=== PATIENT | female | born 1995 | race Caucasian/White ===

== ENCOUNTER 2021-08-04 20:15 | Emergency (ER) | payer MEDICAID, SELFPAY ==
--- NOTE | ~2021-08-04 | US_ITS ---
EXAMINATION: US OBSTETRICAL ULTRASOUND CLINICAL INFORMATION: Left-sided pain COMPARISON: None. LMP: 1821. Gestational age by maternal dates is 2 weeks 5 days. Estimated date of delivery by maternal dates is 04/22/2022. TECHNIQUE: Transabdominal endovaginal pelvic ultrasound FINDINGS: There is a small amount of simple free fluid within the endometrial canal without evidence for any decidual reaction or gestational sac. Right ovary is unremarkable measuring 3.9 x 1.3 x 2.2 cm. Left ovary normal as well measuring 3.2 x 1.3 x 2.5 cm. There is some free fluid in the cul-de-sac which is minimally complex. Within the left adnexa, there appears to be possibly an early ectopic with a rounded lesion measuring 16 mm with a central anechoic area with some internal echogenicities which are too small to characterize. There is increased vascularity within the periphery of this adnexal finding. US/US OB pelvic and transvaginal IMPRESSION: 1. No evidence for any definite gestational or pseudogestational sac. 2. Left adnexal finding which could represent an early ectopic as above. Correlate with hCG levels. 3. Small to moderate amount of complex free fluid in the cul-de-sac which is worrisome as well.
[2021-08-04 20:30] VITALS: BP 128/90; PULSE 71; RESP 16; TEMP 37; O2SAT 99; BMI 22.6
[2021-08-04 20:56] LABS: MANUAL DIFF FLAG NO
[2021-08-04 20:57] LABS: Basophils Percent Auto 0.4 % (0-2); Eosinophils Absolute Auto 0.1 X10*3/uL (0.0-0.4); Eosinophils Percent Auto 1.1 % (0-4); Glucose Urine UA NEG (NEG); Hematocrit 32.3 % (37-47); Hemoglobin 11.1 g/dl (12.0-16.0); Imm Gran Abs Auto 0.02 X10*3/uL (0.00-0.03); Imm Gran Pct Auto 0.3 % (0.0-0.4); Leukocyte Esterase Urine NEG (NEG); Lymphocytes Absolute Auto 3.1 X10*3/uL (1.2-4.9); Lymphocytes Percent Auto 42.4 % (20-40); Mean Corpuscular HGB Conc 34.4 g/dl (31.0-35.0); Mean Corpuscular Hemoglobin 29.1 pg (27.0-33.0); Mean Corpuscular Volume 84.8 fL (80-98); Mean Platelet Volume 10.3 fL (9.4-12.3); Monocytes Absolute Auto 0.5 X10*3/uL (0.1-1.2); Neutrophils Absolute Auto 3.6 X10*3/uL (2.0-8.3); Neutrophils Percent Auto 48.8 % (45-73); Nitrite Urine NEG (NEG); Platelet Count 246 X10*3/uL (160-400); Red Blood Count 3.81 X10*6/uL (4.20-5.50); Specific Gravity - Urine <= 1.005 (1.005-1.025); UACC Culture Trigger NO; Urine Blood 2+ (NEG); Urine Ketones 15 MG/DL (NEG); Urine Protein NEG (NEG-TRACE); White Blood Count 7.3 X10*3/uL (4.8-10.8)
[2021-08-04 21:00] LABS: Appearance Urine CLEAR; Color Urine YELLOW; UPreg QC Valid YES; Urine Pregnancy POSITIVE (NEGATIVE)
[2021-08-04 21:14] LABS: Alanine Aminotransferase 11 U/L (0-31); Albumin Level 4.4 g/dL (3.5-5.0); Alkaline Phosphatase 62 U/L (39-117); Anion Gap 14 (12-20); Aspartate Amino Transferase 16 U/L (5-31); Bilirubin Total 0.6 mg/dL (0.0-1.0); Blood Urea Nitrogen 9 mg/dL (9-16); Calcium 9.4 mg/dL (8.4-10.2); Carbon Dioxide 24 mmol/L (22-29); Chloride 104 mmol/L (96-108); Estimated Glomerular Filt Rate > 60; Glucose Random 95 mg/dL (60-115); Lipase 24 U/L (8-78); Potassium 3.5 mmol/L (3.3-5.1); Sodium 138 mmol/L (135-145); Total Protein 7.3 g/dL (6.5-8.0)
[2021-08-04 21:25] LABS: RBC Urine 0-2 /HPF (0); Squamous Epithelial Cell Urine 1+ /LPF; WBC Urine 0-2 /HPF (0-4)
[2021-08-04 21:26] LABS: Mucus Urine TRACE /LPF
--- NOTE | 2021-08-04 22:30 | ED.PREGNANCY ---
HPI - General Chief complaint: Abdominal Pain Stated complaint: possible misscarriage Time Seen by Provider: 08/04/21 22:19 Source: patient Mode of arrival: ambulatory Limitations: no limitations History of Present Illness HPI Narrative: Patient comes emergency room complaining of vaginal bleeding. Patient states that she has been having severe left lower quadrant pain. Trying to take Tylenol and ibuprofen. On arrival to the ED when the urine test was done, she was informed that her urinalysis was positive. Patient states that she has a 9-month-old baby at home. Patient is now a unknown gestational age. Patient denies vomiting or diarrhea, states that she has been having vaginal bleeding for 5 days Related Data Allergies Allergy/AdvReac Type Severity Reaction Status Date / Time No Known Allergies Allergy Unverified 08/04/21 20:39 [No Known Allergies*] Review of Systems Review of Systems: Constitutional : No Weight loss, No Fever, No Chills, No Night Sweats, No Fatigue, No Malaise ENT/Mouth : No Hearing loss, No Ear Pain, No Nasal Congestion, No Sinus Pain, No Hoarseness, No sore throat, No Rhinorrhea, No Swallowing Difficulty Eyes: No Eye Pain, No Swelling, No Redness, No Foreign Body, No Discharge, No Vision Changes Cardiovascular : No Chest Pain, No SOB, No Dyspnea on Exertion, No Orthopnea, No Edema, No Palpitations Respiratory : No Cough, No Sputum, No Wheezing, No Smoke Exposure, No Dyspnea Gastrointestinal : No Nausea, No Vomiting, No Diarrhea, No Constipation, complaining of left lower quadrant pain/cramping Genitourinary : Complaining of vaginal bleeding for 5 days, No Dysuria, No Urinary Frequency, No Hematuria, No Urinary Incontinence, No Urgency, No Flank Pain, No Urinary Flow Changes, No Hesitancy Musculoskeletal : No joint pain, No Myalgias, No Joint Swelling Skin : No Skin Lesions, No rash Neuro : No Weakness, No Numbness, No Paresthesias, No Loss of Consciousness, No Dizziness, No Headache Psych : No Anxiety/Panic, No Depression, No SI/HI/AH/VH, No Social Issues, Heme/Lymph: No Bruising, No Bleeding,No Lymphadenopathy Endocrine : No Polyuria, No Polydipsia, No Temperature Intolerance PMFSH Past Medical History Medical History No known health problems Social History Social History Advance Directives: No Advance Directives Information Provided: No Physical Exam Vital Signs: Vital Signs: Last Vital Signs Temp 98.6 F 08/04/21 20:30 Pulse 71 08/04/21 20:30 Resp 16 08/04/21 20:30 BP 113/73 08/05/21 00:44 Pulse Ox 99 08/04/21 20:30 Body Mass Index 22.6 Const: Other: Appearance: Alert. Oriented X3. No acute distress. Eyes: Pupils equal, round and reactive to light. ENT: Pharynx normal. Neck: Normal inspection. Neck supple. No lymph nodes noted. No crepitus CVS: Normal heart rate and rhythm. Pulses normal. Normal S1 and S2 Respiratory: No respiratory distress. Breath sounds normal. No Wheezing. No rales Abdomen: Soft , mild to moderate discomfort to deep palpation in the left lower quadrant No rigidity. No distention. : There is moderate amount of blood in the vaginal canal, blood clots, cervix is open Skin: Skin warm and dry. Normal skin color. Normal skin turgor. Extremities: No lower extremity edema. No lower extremity edema. No Lacerations. No Rash Neuro: Oriented X 3. No motor deficit. No sensory deficit. Moving all extermities. No slurred speech. Course Course Course Narrative: I discussed the ultrasound with Dr. Howard; patient has several options. Patient could go home, be treated expectantly, repeat hCG and possible ultrasound in 48 hours. Given clear instructions when to return to emergency room if the pain worsens or she if she has any new symptoms., patient was also given the option to start methotrexate and terminate the . Patient was also given the option to stay in the emergency room for the next 4 hours, repeat HCG, and then we will have a better idea if this may be an ectopic versus IUP. I discussed with the patient that given that she has left lower quadrant pain intermittently, an ultrasound that is highly suspicious for ectopic , I told the patient that I would suggest that she stays at least until 6 to repeat the blood work, then we can monitor her symptoms while she is in the emergency room. Patient states that she cannot stay in the emergency room/be admitted because her is taking care of the baby and she is needed home. Patient is aware that an ectopic rupture is very dangerous, could lead to . Patient will be going home, and needs to have her HCG redrawn in the next 48 hours, I thoroughly discussed with the patient all the signs and symptoms of when to return to the emergency room, and reinforced that she should be staying in the emergency room until we do the re-evaluation Patient states that at this time she almost has no pain. I discussed with the patient that she should not be taking ibuprofen, only time MDM - OB/Uterine Contractions Lab Data Result diagrams: 08/04/21 20:49 08/04/21 20:49 Labs: Lab Results 08/04/21 08/04/21 08/04/21 Range/Units 20:49 20:49 20:49 WBC 7.3 (4.8-10.8) X10*3/uL RBC 3.81 L (4.20-5.50) X10*6/uL Hgb 11.1 L (12.0-16.0) g/dl Hct 32.3 L (37-47) % MCV 84.8 (80-98) fL MCH 29.1 (27.0-33.0) pg MCHC 34.4 (31.0-35.0) g/dl RDW 12.0 (11.0-16.0) % Plt Count 246 (160-400) X10*3/uL MPV 10.3 (9.4-12.3) fL Immature Gran % (Auto) 0.3 (0.0-0.4) % Neut % (Auto) 48.8 (45-73) % Lymph % (Auto) 42.4 H (20-40) % [place] % (Auto) 7.0 (2-11) % Eos % (Auto) 1.1 (0-4) % Baso % (Auto) 0.4 (0-2) % Lymph # (Auto) 3.1 (1.2-4.9) X10*3/uL [place] # (Auto) 0.5 (0.1-1.2) X10*3/uL Eos # (Auto) 0.1 (0.0-0.4) X10*3/uL Baso # (Auto) 0.0 (0.0-0.2) X10*3/uL Abs Immat Gran (auto) 0.02 (0.00-0.03) X10*3/uL Absolute Neuts (auto) 3.6 (2.0-8.3) X10*3/uL Absolute Nucleated RBC 0.000 (0.0-0.012) X10*3/uL Nucleated RBC % (auto) 0.0 (0.0-0.2) /100WBC Sodium 138 (135-145) mmol/L Potassium 3.5 (3.3-5.1) mmol/L Chloride 104 (96-108) mmol/L Carbon Dioxide 24 (22-29) mmol/L Anion Gap 14 (12-20) BUN 9 (9-16) mg/dL Creatinine 0.76 (0.5-1.4) mg/dL Estim Creat Clear Calc 100.0 Estimated GFR > 60 Random Glucose 95 (60-115) mg/dL Calcium 9.4 (8.4-10.2) mg/dL Total Bilirubin 0.6 (0.0-1.0) mg/dL AST 16 (5-31) U/L ALT 11 (0-31) U/L Alkaline Phosphatase 62 (39-117) U/L Total Protein 7.3 (6.5-8.0) g/dL Albumin 4.4 (3.5-5.0) g/dL Lipase 24 (8-78) U/L Beta HCG, Quant 1386 mIU/mL Urine Color YELLOW Urine Appearance CLEAR Urine pH 6.0 (5.0-8.0) Ur Specific [place] <= 1.005 (1.005-1.025) Urine Protein NEG (NEG-TRACE) MG/DL Urine Glucose (UA) NEG (NEG) MG/DL Urine Ketones 15 (NEG) MG/DL Urine Blood 2+ H (NEG) Urine Nitrite NEG (NEG) Ur Leukocyte Esterase NEG (NEG) Urine RBC 0-2 (0) /HPF Urine WBC 0-2 (0-4) /HPF Ur Squamous Epith Cells 1+ /LPF Urine Bacteria NONE /LPF Urine Mucus TRACE /LPF Urine Test (NEGATIVE) 08/04/21 Range/Units 20:49 WBC (4.8-10.8) X10*3/uL RBC (4.20-5.50) X10*6/uL Hgb (12.0-16.0) g/dl Hct (37-47) % MCV (80-98) fL MCH (27.0-33.0) pg MCHC (31.0-35.0) g/dl RDW (11.0-16.0) % Plt Count (160-400) X10*3/uL MPV (9.4-12.3) fL Immature Gran % (Auto) (0.0-0.4) % Neut % (Auto) (45-73) % Lymph % (Auto) (20-40) % [place] % (Auto) (2-11) % Eos % (Auto) (0-4) % Baso % (Auto) (0-2) % Lymph # (Auto) (1.2-4.9) X10*3/uL [place] # (Auto) (0.1-1.2) X10*3/uL Eos # (Auto) (0.0-0.4) X10*3/uL Baso # (Auto) (0.0-0.2) X10*3/uL Abs Immat Gran (auto) (0.00-0.03) X10*3/uL Absolute Neuts (auto) (2.0-8.3) X10*3/uL Absolute Nucleated RBC (0.0-0.012) X10*3/uL Nucleated RBC % (auto) (0.0-0.2) /100WBC Sodium (135-145) mmol/L Potassium (3.3-5.1) mmol/L Chloride (96-108) mmol/L Carbon Dioxide (22-29) mmol/L Anion Gap (12-20) BUN (9-16) mg/dL Creatinine (0.5-1.4) mg/dL Estim Creat Clear Calc Estimated GFR Random Glucose (60-115) mg/dL Calcium (8.4-10.2) mg/dL Total Bilirubin (0.0-1.0) mg/dL AST (5-31) U/L ALT (0-31) U/L Alkaline Phosphatase (39-117) U/L Total Protein (6.5-8.0) g/dL Albumin (3.5-5.0) g/dL Lipase (8-78) U/L Beta HCG, Quant mIU/mL Urine Color Urine Appearance Urine pH (5.0-8.0) Ur Specific [place] (1.005-1.025) Urine Protein (NEG-TRACE) MG/DL Urine Glucose (UA) (NEG) MG/DL Urine Ketones (NEG) MG/DL Urine Blood (NEG) Urine Nitrite (NEG) Ur Leukocyte Esterase (NEG) Urine RBC (0) /HPF Urine WBC (0-4) /HPF Ur Squamous Epith Cells /LPF Urine Bacteria /LPF Urine Mucus /LPF Urine Test POSITIVE H (NEGATIVE) Imaging Data Pelvic ultrasound: Radiologist's impression: FINDINGS: There is a small amount of simple free fluid within the endometrial canal without evidence for any decidual reaction or gestational sac. Right ovary is unremarkable measuring 3.9 x 1.3 x 2.2 cm. Left ovary normal as well measuring 3.2 x 1.3 x 2.5 cm. There is some free fluid in the cul-de-sac which is minimally complex. ?Within the left adnexa, there appears to be possibly an early ectopic with a rounded lesion measuring 16 mm with a central anechoic area with some internal echogenicities which are too small to characterize. There is increased vascularity within the periphery of this adnexal finding. US/US OB pelvic and transvaginal IMPRESSION: 1. No evidence for any definite gestational or pseudogestational sac. 2. Left adnexal finding which could represent an early ectopic as above. Correlate with hCG levels. 3. Small to moderate amount of complex free fluid in the cul-de-sac which is worrisome as well. Discharge Plan Discharge Clinical Impression: Ectopic Patient Disposition: Home, Self-Care Instructions: Ectopic (DC) Additional Instructions: Your ultrasound and the pain in the abdomen your experiencing is highly suspicious of an ectopic which can be a life-threatening condition. You decided to go home. Please follow-up with Dr. Howard either on October 06 , the at the latest. If you have any further symptoms, ongoing pain, worsening pain, dizziness, overall not feeling well, any new symptoms, please return to the emergency room Referrals: Davie Howard MD [Physician] - 2 days
[2021-08-04 22:41] LABS: HCG Quantitative 1386 mIU/mL
[2021-08-05 00:44] VITALS: BP 113/73
--- NOTE | 2021-08-05 02:06 | P.CONOB_ITS ---
[employer]EWEL[employer]DEL [employer] - CN: HPI Data of Consult Consult date: 08/05/21 Primary Care Provider: Tanya Guo CNP Consult Narrative Narrative: I was consulted by Dr. Roth regarding Monica Quiroga who is a 25 year old female who presented to the emergency room with vaginal bleeding of 5 days duration and left lower quadrant pain, mild in nature, the patient has been for the last 9 months. Urine test was done and was positive hCG came back at 1386. Rh positive. Ultrasound done in emergency room showed the following: : There is a small amount of simple free fluid within the endometrial canal without evidence for any decidual reaction or gestational sac. Right ovary is unremarkable measuring 3.9 x 1.3 x 2.2 cm. Left ovary normal as well measuring 3.2 x 1.3 x 2.5 cm. There is some free fluid in the cul-de-sac which is minimally complex.?Within the left adnexa, there appears to be possibly an early ectopic with a rounded lesion measuring 16 mm with a central anechoic area with some internal echogenicities which are too small to characterize. There is increased vascularity within the periphery of this adnexal finding. cc:: CC: KNIFE [employer]ISHER - Review of Systems Review of Systems ROS Unobtainable: All systems reviewed & are unremarkable except as noted in HPI and below Cardiovascular: Denies Palpatations, Loss of consciousness or Chest pain Respiratory: Denies Cough, Wheezing or Shortness of breath Musculoskeletal: Denies Low back pain Gastrointestinal: Denies Heartburn, Constipation, Diarrhea, Nausea or Vomiting Genitourinary: Denies Pain with urination, Burning with urination or Urinary frequency Neurological: Denies Migranes Psychological: Denies Depression OB [facility], [facility] Past Medical History Medical History No known health problems Social History Social History Advance Directives: No Advance Directives Information Provided: No Meds Allergies Allergy/AdvReac Type Severity Reaction Status Date / Time No Known Allergies Allergy Unverified 08/04/21 20:39 [No Known Allergies*] [employer] Physical Exam Vitals Vital signs: Temp Pulse Resp BP Pulse Ox 98.6 F 71 16 113/73 99 08/04/21 20:30 08/04/21 20:30 08/04/21 20:30 08/05/21 00:44 08/04/21 20:30 Body Mass Index 22.6 Constitutional General Appearance: Other Abdomen Auscultation/Inspection/Palpation: Other (Per Dr. Roth no tenderness, no rebound or guarding, only mild tenderness on deep palpation) Additional Comments: Pelvic Exam done by Dr. Roth revealed mild vaginal bleeding , cervix open [employer] - Results Labs CBC & Chem 7: 08/04/21 20:49 08/04/21 20:49 Labs: Short CBC 08/04/21 Range/Units 20:49 WBC 7.3 (4.8-10.8) X10*3/uL Hgb 11.1 L (12.0-16.0) g/dl Hct 32.3 L (37-47) % Plt Count 246 (160-400) X10*3/uL BMP 08/04/21 20:49 Sodium 138 Potassium 3.5 Chloride 104 Carbon Dioxide 24 BUN 9 Creatinine 0.76 Calcium 9.4 Liver Function 08/04/21 Range/Units 20:49 Total Bilirubin 0.6 (0.0-1.0) mg/dL AST 16 (5-31) U/L ALT 11 (0-31) U/L Alkaline Phosphatase 62 (39-117) U/L Albumin 4.4 (3.5-5.0) g/dL Urine 08/04/21 08/04/21 Range/Units 20:49 20:49 Urine Color YELLOW Urine Appearance CLEAR Urine pH 6.0 (5.0-8.0) Ur Specific [place] <= 1.005 (1.005-1.025) Urine Protein NEG (NEG-TRACE) MG/DL Urine Glucose (UA) NEG (NEG) MG/DL Urine Test POSITIVE H (NEGATIVE) Assessment and Plan (1) Early stage of : Status: Acute SAB versus ectopic Discussed with the following: The HCG level is below the level which is expected identify by US the majority of normal intrauterine gestation.? The differential diagnosis discussed with the patient included either early ectopic versus early SAB with a possibility of normal intrauterine gestation.? Options of treatment were discussed with the patient includin-?6 hour observation in the ER ?and repeat HCG with serial examination 2-?Expected management for the coming 48 hours and repeat HCG with t pelvic Ultrasound. 3-?Treat as if she has tubal with methotrexate. All the pros and cons and risks and benefits of each treatment include the following:? 1- The advantage of the first option is that if repeat hcg level in 6 hours is lower, the dx will be pointing more towards SAB (without certainty) and will provide the opportunity to reevaluate the pt?s clinical condition to make sure she is stable prior to her? discharge home 2-The advantage of expectant management were discussed with the patient, being prevention of possible exposure to teratogenicity or risk of spontaneous in case of an early normal , the risk being delayed diagnosis and treatment of ectopic and possible rupture with all its possible consequences including intra-abdominal bleed and possible .? 3-Treatment with methotrexate, the advantage of early treatment of presumed tubal with methotrexate being? to reduce the risk of ruptured ectopic with all its potential consequences, in addition to the following ?risks including but not limited to, possible exposure to methotrexate to a normal intra and and increase the risk of spontaneous and congenital anomalies, contraindication during breast feeding The patient was counseled by Dr Roth with the above information who stated that she verbalized understanding and?decided to proceed with expectant management with HCG and repeat ultrasound in Q 48 hours. Instructions to be given to the patient to the importance of compliance and timely HCG follow-up in 48 hours for an early and accurate diagnosis, and to call or go to the emergency room if pain or vaginal bleeding occurs, all questions answered, the patient verbalized understanding and agreed with the plan. Follow-up note Since the patient declined to stay for 6 hours of observation will repeat hCG today and examined the patient in the morning and follow-up for 8 hours hCG and evaluation. I was consulted on this patient on the phone, did not examine nor talked to the patient
== END 2021-08-05 03:00 | disposition home or self-care (01) ==
PROVIDERS: Emergency Provider Emergency Medicine; PCP Family Medicine
DX: O00.90 Unspecified ectopic pregnancy without intrauterine pregnancy (principal); O26.891 Other specified pregnancy related conditions, first trimester; R10.32 Left lower quadrant pain; Z3A.01 Less than 8 weeks gestation of pregnancy
CPT/HCPCS: 36415; 76801; 76817; 80053; 81001; 81025; 83690; 84702; 85025; 99284

== ENCOUNTER 2021-08-05 13:27 | Outpatient (REF) | payer MEDICAID, SELFPAY ==
[2021-08-05 14:50] LABS: HCG Quantitative 1582 mIU/mL
[2021-08-06 14:17] LABS: CT PCR NOT DETECTED (Not Detect.); NG PCR NOT DETECTED (Not Detect.)
== END 2021-08-05 13:28 | disposition home or self-care (01) ==
LOC: HO.LAB 13:27
PROVIDERS: PCP Family Medicine; Visit Provider Obstetrics & Gynecology
DX: Z34.90 Encounter for supervision of normal pregnancy, unspecified, unspecified trimester (principal)
CPT/HCPCS: 36415; 84702; 87491; 87591; 99212

== ENCOUNTER 2021-08-07 12:13 | Outpatient (REF) | payer MEDICAID, SELFPAY ==
--- NOTE | ~2021-08-07 | US_ITS ---
EXAMINATION: US OBSTETRICAL ULTRASOUND CLINICAL INFORMATION: Question ectopic . COMPARISON: Previous OB ultrasound 08/04/2021 LMP: 07/06/2021. Gestational age by maternal dates is 4 weeks 4 days. Estimated date of delivery by maternal dates is 04/12/2022. TECHNIQUE: Transabdominal and transvaginal pelvic ultrasound was performed. Transvaginal exam was performed for better visualization of the uterus and ovaries. FINDINGS: The uterus is anteverted and measures 8.8 x 3.1 x 4.5 cm in dimension. The endometrium does not appear thickened. Anterior single thickness endometrium measures 2 mm and posterior single thickness endometrium measures 4 mm. There is a small amount of fluid seen in the endometrial cavity. No intrauterine is seen. The cervix is normal-appearing. The right ovary is normal-appearing and measures 3 x 1.6 x 1.4 cm. The left ovary measures 2 x 2.3 x 2.6 cm and is normal-appearing. There is a structure in the left adnexa medial to the left ovary. This has a thick echogenic wall and is questionable for an ectopic . This is similar to previous exam. There is a small amount of fluid in the pelvis. Fluid appears decreased and less complex than seen on 08/04/2021 exam. US/US OB <= 14 weeks fetus IMPRESSION: No intrauterine seen. Complex thick-walled cystic structure in the left adnexa again questionable for an ectopic . Small amount of fluid in the pelvis.
[2021-08-07 13:15] LABS: HCG Quantitative 2231 mIU/mL
== END 2021-08-07 12:14 | disposition home or self-care (01) ==
LOC: HO.US 12:13
PROVIDERS: PCP Family Medicine; Visit Provider Obstetrics & Gynecology
DX: Z34.90 Encounter for supervision of normal pregnancy, unspecified, unspecified trimester (principal)
CPT/HCPCS: 36415; 76801; 84702; 99212

== ENCOUNTER 2021-08-09 12:15 | Emergency (ER) | payer MEDICAID, SELFPAY ==
--- NOTE | ~2021-08-09 | US_ITS ---
EXAMINATION: US OBSTETRICAL ULTRASOUND CLINICAL INFORMATION: History of and vaginal bleeding. Follow-up. COMPARISON: Recent pelvic ultrasound exams from 08/04/2021 and 08/07/2021.. TECHNIQUE: Sonographic imaging of the pelvis performed using transabdominal and transvaginal transducers. FINDINGS: No new abnormalities compared to the recent pelvic ultrasound exams. The anteflexed, anteverted uterus is normal in size and measures approximately 6 cm long, 3.8 cm AP and 5 cm transverse. The myometrial echotexture is normal. The endometrium has homogeneous echotexture and measures up to 0.5 cm AP. No gestational sac within the endometrium. The ovaries remain normal in size and echotexture. No ovarian torsion. The right ovary is 3.5 x 1.8 x 2.2 cm and left ovary 3.1 x 2.4 x 2.4 cm. Medial to left ovary, there is a 1.9 x 1.7 x 2.5 cm thick-walled appearing structure of heterogeneous echotexture, indeterminate. Given absence of an identifiable intrauterine gestation, the possibility of ectopic is considered, as discussed on the prior ultrasound exams. Trace amount of pelvic free fluid is present. US/US OB pelvic and transvaginal IMPRESSION: There is an indeterminate structure of complex echotexture medial to the left ovary. It is uncertain whether this represents an ectopic , as noted on the prior exams. There is no intrauterine gestation.
--- NOTE | 2021-08-09 13:38 | ED_ITS ---
HPI - General Adult General Chief complaint: Vaginal Bleeding Stated complaint: ?ectopic Time Seen by Provider: 08/09/21 13:33 Source: patient Mode of arrival: ambulatory Limitations: no limitations History of Present Illness HPI narrative: 25-year-old female coming in for repeat ultrasound and beta quant level. Of note patient was seen here in the emergency department on August 04 of left lower abdominal pain and vaginal bleeding. She had had a test at home that was positive. She is . She had a ultrasound that was concerning for left adnexal mass which could represent an early ectopic . Daniela hcg was 1386. Saw OB (dr howard) 08/05 and 08/07 with repeat hcg levels 1582, 2231. She was counseled on her options for ectopic and she decided to wait 48 hours for repeat hormone levels and ultrasound (due today). Patient does report some mild discomfort but has not required any Tylenol Motrin since being seen by OB on August 07. She has had some scant vaginal bleeding using about 1 pad per day. She tells me this is not worsened from previous. No fevers or chills or urinary symptoms. Related Data Home Medications Medication Instructions Recorded Confirmed acetaminophen 325 mg tablet 325 mg PO QID PRN 08/05/21 (Tylenol) Allergies Allergy/AdvReac Type Severity Reaction Status Date / Time No Known Allergies Allergy Verified 08/05/21 13:58 [No Known Allergies*] Review of Systems Review of Systems: Yes all other systems are reviewed and are negative Constitutional: Constitutional: Reports no additional constitutional complaints, Denies body ache(s), Denies chills, Denies fever(s), Denies headache(s) and Denies weakness Eyes: Eyes: Reports no additional eye complaints and Denies change in vision ENT: Reports system reviewed and no additional complaints, except as documented, Denies dizziness, Denies headache(s), Denies nasal congestion, Denies nasal discharge and Denies neck pain Cardiovascular: Cardiovascular: Reports no additional cardiovascular complaints, Denies chest pain, Denies leg edema and Denies dyspnea Respiratory: Respiratory: Reports no additional respiratory complaints, Denies cough and Denies dyspnea Gastrointestinal: Gastrointestinal: Reports no additional gastrointestinal complaints, Reports abdominal pain, Denies diarrhea, Denies nausea and Denies vomiting Genitourinary: Genitourinary: Reports no additional female genitourinary complaints, Reports abnormal vaginal bleeding and Denies urinary incontinence Musculoskeletal: Musculoskeletal: Reports no additional musculoskeletal complaints, Denies back pain, Denies arthralgias, Denies joint swelling, Denies neck pain, Denies numbness and Denies tingling Integumentary/Breasts: Skin/Breast: Reports system reviewed and no additional complaints, except as docu and Denies rash Neurologic: Reports system reviewed and no additional complaints, except as documented, Denies Abnormal speech present, Denies dizziness, Denies headache(s), Denies numbness, Denies tingling and Denies weakness [facility] Past Medical History Attestation statement: The following information was validated with the patient. Source: old records reviewed and nursing notes reviewed Medical History No known health problems Surgical History Hx of section Family History Family History Maternal Grandmother Breast CA Social History Social History Patient Tobacco Use Status: Never used Tobacco Physical Exam Vital Signs: Vital Signs: Last Vital Signs Temp 98.7 F 08/09/21 14:18 Pulse 76 08/09/21 14:18 Resp 18 08/09/21 14:18 BP 138/90 H 08/09/21 14:18 Pulse Ox 100 08/09/21 14:18 Body Mass Index 18.9 Const: General: cooperative, healthy appearing, comfortable and no acute distress Orientation/consciousness: patient oriented x3 Limitations: no limitations HENMT: Head: Yes normal to inspection Ears: hearing grossly normal bilaterally General nose exam: Normal external nose present Face and sinus: Yes normal facial exam Mouth: Normal oral and palatal mucosa present Throat: Yes posterior oropharynx normal Eyes: General: appearance normal, both eyes and all related structures Pupils: Equal, round and reactive pupils present Neck: Neck: Yes normal visual inspection Chest: Chest palpation & inspection: normal inspection of the chest Resp: Effort & Inspection: normal respiratory effort Auscultation: clear to auscultation bilaterally Cardio: Rate: regular rate Rhythm: regular rhythm Peripheral pulses: Peripheral pulses 2+ throughout GI: Inspection: Yes normal to inspection Palpation (GI): Soft to palpation and Tenderness to palpation present (GI) (mild LLQ-no rebound or guarding ) Auscultation: normal bowel sounds Back/Spine/Pelvis: Thoracic/Lumbar Spine: thoracic and lumbar spine normal to inspection Skin: General skin exam: no rashes or lesions noted Neuro: General: patient oriented x3, no focal motor deficits and normal sens ation to monofilament Cranial nerves: Yes Equal, round and reactive pupils present Cognition (Neuro): normal cognition Speech: No Abnormal speech present Gait exam (Neuro): Normal gait present Motor exam (neuro): 5/5 motor strength present throughout Extrem: General: Yes normal to inspection Course Course Course Narrative: 25-year-old female here with complaints of left lower abdominal discomfort and vaginal bleeding which she has had for approximately line to 10 days in the setting of known left early a topic being followed by OB with serial hCG levels and ultrasound. She was sent in today for repeat hCG level and ultrasound as it is the weekend. She reports some mild discomfort and vaginal bleeding unchanged from previous. Will check labs, US and discuss with OB 1605-quant today is 3784. Ultrasound shows There is an indeterminate structure of complex echotexture medial to the left ovary. It is uncertain whether this represents an ectopic , as noted on the prior exams. There is no intrauterine gestation. Discussed case with Dr. Howard.. He will come in to consult patient with plan for methotrexate 1700-patient seen by Dr. Howard. Plan for methrotrexate here in ED. Plan for repeat hCG level Wednesday and then a repeat level on Wednesday with an office visit. Patient given lab slip for hcg level on Wednesday -reviewed worrisome signs and symptoms when to return to the emergency department. Comfortable discharge home. Medical Decision Making Medical Records Medical records reviewed: Yes I reviewed the patient's medical records. Lab Data Lab results reviewed: Yes I reviewed the patient's lab results. Result diagrams: 08/09/21 14:51 08/09/21 14:51 Labs: Lab Results 08/09/21 08/09/21 Range/Units 14:51 14:51 WBC 6.2 (4.8-10.8) X10*3/uL RBC 4.01 L (4.20-5.50) X10*6/uL Hgb 11.6 L (12.0-16.0) g/dl Hct 34.0 L (37-47) % MCV 84.8 (80-98) fL MCH 28.9 (27.0-33.0) pg MCHC 34.1 (31.0-35.0) g/dl RDW 12.2 (11.0-16.0) % Plt Count 262 (160-400) X10*3/uL MPV 10.3 (9.4-12.3) fL Immature Gran % (Auto) 0.2 (0.0-0.4) % Neut % (Auto) 48.0 (45-73) % Lymph % (Auto) 43.1 H (20-40) % Meigs % (Auto) 6.1 (2-11) % Eos % (Auto) 2.1 (0-4) % Baso % (Auto) 0.5 (0-2) % Lymph # (Auto) 2.7 (1.2-4.9) X10*3/uL Meigs # (Auto) 0.4 (0.1-1.2) X10*3/uL Eos # (Auto) 0.1 (0.0-0.4) X10*3/uL Baso # (Auto) 0.0 (0.0-0.2) X10*3/uL Abs Immat Gran (auto) 0.01 (0.00-0.03) X10*3/uL Absolute Neuts (auto) 3.0 (2.0-8.3) X10*3/uL Absolute Nucleated RBC 0.000 (0.0-0.012) X10*3/uL Nucleated RBC % (auto) 0.0 (0.0-0.2) /100WBC Sodium 141 (135-145) mmol/L Potassium 3.8 (3.3-5.1) mmol/L Chloride 107 (96-108) mmol/L Carbon Dioxide 27 (22-29) mmol/L Anion Gap 11 L (12-20) BUN 6 L (9-16) mg/dL Creatinine 0.71 (0.5-1.4) mg/dL Estim Creat Clear Calc 112.5 Estimated GFR > 60 Random Glucose 92 (60-115) mg/dL Calcium 10.0 D (8.4-10.2) mg/dL Total Bilirubin 0.3 (0.0-1.0) mg/dL Direct Bilirubin 0.2 (0.0-0.5) mg/dL AST 14 (5-31) U/L ALT 10 (0-31) U/L Alkaline Phosphatase 61 (39-117) U/L Total Protein 7.6 (6.5-8.0) g/dL Albumin 4.6 (3.5-5.0) g/dL Beta HCG, Quant 3784 mIU/mL Imaging Data US - abdomen: Attestation: I personally reviewed and interpreted this imaging study as follows: Radiologist's impression: There is an indeterminate structure of complex echotexture medial to the left ovary. It is uncertain whether this represents an ectopic , as noted on the prior exams. There is no intrauterine gestation. Discharge Plan Discharge Clinical Impression: Ectopic Patient Disposition: Home, Self-Care Instructions: Methotrexate (By injection), Ectopic (DC) Additional Instructions: Return for severe abdominal pain, worsening bleeding Repeat hormone level Wednesday See Dr. Howard in the office on Wednesday for a repeat hormone level and exam Prescriptions: No Action acetaminophen [Tylenol] 325 mg tablet 325 mg PO QID PRNRF: 0 Referrals: Davie Howard MD [Physician] - 2 days Interventions: ED Discharge Assessment Last Done: 08/09/21 18:14 Discharge Date/Time: 08/09/21 18:16
[2021-08-09 14:18] VITALS: BP 138/90; PULSE 76; RESP 18; TEMP 37.1; O2SAT 100; BMI 18.9
[2021-08-09 14:55] LABS: MANUAL DIFF FLAG NO
[2021-08-09 14:57] LABS: Basophils Percent Auto 0.5 % (0-2); Eosinophils Absolute Auto 0.1 X10*3/uL (0.0-0.4); Eosinophils Percent Auto 2.1 % (0-4); Hemoglobin 11.6 g/dl (12.0-16.0); Imm Gran Abs Auto 0.01 X10*3/uL (0.00-0.03); Imm Gran Pct Auto 0.2 % (0.0-0.4); Lymphocytes Absolute Auto 2.7 X10*3/uL (1.2-4.9); Lymphocytes Percent Auto 43.1 % (20-40); Mean Corpuscular HGB Conc 34.1 g/dl (31.0-35.0); Mean Corpuscular Hemoglobin 28.9 pg (27.0-33.0); Mean Corpuscular Volume 84.8 fL (80-98); Mean Platelet Volume 10.3 fL (9.4-12.3); Monocytes Absolute Auto 0.4 X10*3/uL (0.1-1.2); Monocytes Percent Auto 6.1 % (2-11); Platelet Count 262 X10*3/uL (160-400); Red Blood Count 4.01 X10*6/uL (4.20-5.50); Red Cell Distribution Width 12.2 % (11.0-16.0); White Blood Count 6.2 X10*3/uL (4.8-10.8)
[2021-08-09 15:14] LABS: Alanine Aminotransferase 10 U/L (0-31); Albumin Level 4.6 g/dL (3.5-5.0); Alkaline Phosphatase 61 U/L (39-117); Anion Gap 11 (12-20); Aspartate Amino Transferase 14 U/L (5-31); Bilirubin Direct 0.2 mg/dL (0.0-0.5); Bilirubin Total 0.3 mg/dL (0.0-1.0); Blood Urea Nitrogen 6 mg/dL (9-16); Chloride 107 mmol/L (96-108); Creatinine Clr Calc Pharmacy 112.5; Estimated Glomerular Filt Rate > 60; Glucose Random 92 mg/dL (60-115); Potassium 3.8 mmol/L (3.3-5.1); Sodium 141 mmol/L (135-145); Total Protein 7.6 g/dL (6.5-8.0)
[2021-08-09 15:19] LABS: HCG Quantitative 3784 mIU/mL
[2021-08-09 15:42] LABS: Carbon Dioxide 27 mmol/L (22-29)
--- NOTE | 2021-08-09 17:24 | P.CONOB_ITS ---
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 HCG done 2 days ago on 08/07/2021 was 2231 compared to 1582 on 08/05/2021 Ultrasound done on 08/07/2021 showed the following: No intrauterine seen. Complex thick-walled cystic structure in the left adnexa again questionable for an ectopic . Small amount of fluid in the pelvis. The patient is complaining of mild vaginal spotting, no other symptoms no pelvic pain or pressure or any other complaints.? The patient is breast feeding her 9-month-old baby Rh positive?? HCG done today went up to 3784 Ultrasound repeated today showed No gestational sac within the endometrium. Medial to left ovary, there is a 1.9 x 1.7 x 2.5 cm thick-walled appearing structure of heterogeneous echotexture, indeterminate. 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 Review of Systems ROS Unobtainable: All systems reviewed & are unremarkable except as noted in HPI and below Cardiovascular: Denies Palpatations, Loss of consciousness or Chest pain Respiratory: Denies Cough, Wheezing or Shortness of breath Musculoskeletal: Denies Low back pain Gastrointestinal: Denies Heartburn, Constipation, Diarrhea, Nausea or Vomiting Genitourinary: Denies Pain with urination, Burning with urination or Urinary frequency Neurological: Denies Migranes Psychological: Denies Depression OB [facility] Past Medical History Medical History No known health problems Family History Family History Maternal Grandmother Breast CA Surgical History Surgical History Hx of section Social History Social History Patient Tobacco Use Status: Never used Tobacco Advance Directives: No Advance Directives Information Provided: No Meds Allergies Allergy/AdvReac Type Severity Reaction Status Date / Time No Known Allergies Allergy Verified 08/05/21 13:58 [No Known Allergies*] Home Medications Medication Instructions Recorded Confirmed Last Taken Type acetaminophen 325 mg tablet 325 mg PO QID PRN 08/05/21 Unknown History (Tylenol) SATURATOR TENDER Physical Exam Vitals Vital signs: Temp Pulse Resp BP Pulse Ox 98.7 F 76 18 138/90 H 100 08/09/21 14:18 08/09/21 14:18 08/09/21 14:18 08/09/21 14:18 08/09/21 14:18 Body Mass Index 18.9 Constitutional General Appearance: Healthy appearing, Well-nourished and Well-developed Psychiatric Mood and Affect: active and alert, normal mood and normal affect Skin Appearance: No rashes and No lesions Lungs Respiratory Effort: No intercostal retractions Auscultation: Clear to auscultation Cardiovascular Auscultation: RRR Abdomen Auscultation/Inspection/Palpation: Normal bowel sounds, Soft, Non-distended and No tenderness Female Genitalia (Pelvic) Exam: Deferred SATURATOR TENDER - Results Labs CBC & Chem 7: 08/09/21 14:51 08/09/21 14:51 Labs: Short CBC 08/09/21 Range/Units 14:51 WBC 6.2 (4.8-10.8) X10*3/uL Hgb 11.6 L (12.0-16.0) g/dl Hct 34.0 L (37-47) % Plt Count 262 (160-400) X10*3/uL BMP 08/09/21 14:51 Sodium 141 Potassium 3.8 Chloride 107 Carbon Dioxide 27 BUN 6 L Creatinine 0.71 Calcium 10.0 D Liver Function 08/09/21 Range/Units 14:51 Total Bilirubin 0.3 (0.0-1.0) mg/dL Direct Bilirubin 0.2 (0.0-0.5) mg/dL AST 14 (5-31) U/L ALT 10 (0-31) U/L Alkaline Phosphatase 61 (39-117) U/L Albumin 4.6 (3.5-5.0) g/dL Assessment and Plan (1) Ectopic : Status: Acute Discussed with the patient the findings on ultrasound 2.5 cm mass medial t o the left ovary suspicious for ectopic with no evidence of intrauterine , also discussed the patient the hCG although above 41% rate of rise in 48 hours but hCG being above 3500 with no evidence of intrauterine by ultrasound is pointing towards possibility of ectopic although andintrauterine is still a possibility. Discussed with the patient treatment options including the following observation repeat hCG every 48 hours with warning signs of SAB versus ectopic, option 2. Suction D and C to rule out intrauterine followed by hCG levels and determined SAB versus ectopic, option 3 is methotrexate treatment ; All the pros and cons risks and benefits of each approach were discussed with the patient including but not limited to, failure rate of MTX ~15%, possible exposure of methotrexate teratogenicity to an early intrauterine not diagnosed by ultrasound with the risk of SAB and severe deformities, possibility of an early intrauterine , methotrexate is transmitted is through the breast milk and the patient is to continue breast feeding immediately and for the coming 4 months. Patient desires methotrexate treatment and agrees to discontinue breast feeding immediately. Discussed with the patient the common side effects of the medication, including skin rash, sensitivity to the sun, indigestion, nausea, sore mouth were discussed with the patient. Less common side effects (occurring in less than 2% of patients) were also discussed a drop in blood cell counts or temporary elevation in liver enzymes. All questions were answered and recommended follow up reviewed. Plan methotrexate 50 mg/m2 BSA x 1.73 m2 BSA = 86 methotrexate IM x 1. Patient information sheet was given to the patient and instructed patient not to have intercourse or perform strenuous exercises or activities avoid sun exposure. CBC platelets, liver function and creatinine are within normal. The patient was given to the instructions to follow up with hCG day 4 and 7 and follow with an appointment day 7, Discontinued breast-feeding, s/s of ruptured ectopic d/w she is to call or go to the ER if abdominal pain occurs, otherwise hcg day 4 and repeat HCG day 7 with follow-up appointment in the office. Discussed with the patient that Methotrexate is cleared from the serum before the 4 to12 weeks necessary for the resolution of the ectopic gestation and ovulation in the next cycle . However, there are reports of methotrexate detectable in liver cells 116 days past exposure . Limited evidence suggests that the frequency of congenital anomalies or early loss is not elevated in women who have become shortly after methotrexate exposure . However, perhaps based on the timing of methotrexate clearance from the body, some experts continue to recommend that women delay and no breast- feeding for at least 3-4 months after the last dose of methotrexate .All questions were answered pt verbalized understanding. ?[id number] with the patient 30 minutes, I spent a total of 40 minutes [id number] with the patient documenting in the record and reviewing the chart.
[2021-08-09] MEDS: metHOTREXate sodium 125 MG/5 ML SYRINGE 86 MG IM (17:50)
== END 2021-08-09 18:16 | disposition home or self-care (01) ==
PROVIDERS: Nurse Practitioner Family; Emergency Provider Emergency Medicine; PCP Family Medicine
DX: O00.90 Unspecified ectopic pregnancy without intrauterine pregnancy (principal); Z3A.00 Weeks of gestation of pregnancy not specified
CPT/HCPCS: 36415; 76801; 76817; 80048; 80076; 84702; 85025; 96372; 99283; 99284; J9250

== ENCOUNTER 2021-08-12 14:50 | Outpatient (REF) | payer MEDICAID, SELFPAY ==
[2021-08-12 16:34] LABS: HCG Quantitative 4873 mIU/mL
== END 2021-08-12 14:51 | disposition home or self-care (01) ==
LOC: HO.LAB 14:50
PROVIDERS: Absent Provider Obstetrics & Gynecology; PCP Family Medicine; Visit Provider Nurse Practitioner Family
DX: O00.90 Unspecified ectopic pregnancy without intrauterine pregnancy (principal)
CPT/HCPCS: 36415; 84702

== ENCOUNTER 2021-08-15 08:32 | Day surgery (SDC) | payer MEDICAID, SELFPAY ==
[2021-08-15] VITALS (27 sets, daily range): BP systolic 97–140; BP diastolic 56–86; PULSE 60–86; RESP 14–18; TEMP 36.3–36.8; O2SAT 96–100; BMI 21.9
--- NOTE | ~2021-08-15 | US_ITS ---
EXAMINATION: US OBSTETRICAL ULTRASOUND CLINICAL INFORMATION: Evaluate for ruptured ectopic, continually increasing beta hCG COMPARISON: 08/09/2021. LMP: 07/16/2021. Gestational age by maternal dates is 4 weeks 2 days. Estimated date of delivery by maternal dates is 04/22/2022. TECHNIQUE: Sonographic images of the pelvis with transabdominal and transvaginal imaging FINDINGS: No intrauterine gestation identified. The uterus is anteverted. The endometrium measures 0.58 cm in thickness. MATERNAL ADNEXA: The right maternal ovary measures 3.3 x 1.4 x 1.5 cm. The left maternal ovary measures 3.0 x 1.3 x 2.3 cm. Again noted medial to the left ovary in the left adnexa is a complex masslike region measuring 2.6 x 3.8 x 4.4 cm, previously measuring 1.9 x 1.7 x 2.5 cm with demonstration of vascular flow. There has been interval development of a moderate to large amount of free fluid in the pelvis. US/US OB pelvic and transvaginal IMPRESSION: 1. No intrauterine gestation identified. 2. Redemonstration of a complex left adnexal masslike structure medial to the left ovary measuring up to 4.4 cm, previously measuring up to 2.5 cm with vascular flow. Interval development of free fluid in the pelvis. Given the lack of intrauterine gestational sac identified as well as increasing beta hCG as well as increasing size of left adnexal mass, findings are concerning for a ectopic . Free fluid in the pelvis may be physiologic though given interval increase since prior imaging may also represent ruptured ectopic. This critical result was discussed with DR. Alia CHEN by telephone on 08/15/2021 9:56 AM and it was ascertained that the content and urgency of the report was understood at the time of direct communication.
--- NOTE | 2021-08-15 08:33 | ED_ITS ---
HPI - Abdominal Pain General Chief Complaint: Abdominal Pain Stated Complaint: abd pain Time Seen by Provider: 08/15/21 08:24 Source: patient and old records reviewed Mode of arrival: ambulatory Limitations: no limitations History of Present Illness MD elicited complaint: abdominal pain Pertinent past history: other (treated for ectopic on 08/09 with methotrexate) Onset (ago): day(s) (has had cramping for days but severe pain in the middle of the night today) Pain Consistency: constant Location: LLQ and suprapubic Severity: severe Quality: stabbing Radiation: none Migration to: no migration Exacerbating factors: movement Relieving factors: nothing Context: other (ectopic 08/09) Associated symptoms: nausea Treatments prior to arrival: other (tried tylenol) Related Data Home Medications Medication Instructions Recorded Confirmed acetaminophen 325 mg tablet 325 mg PO QID PRN 08/05/21 (Tylenol) Allergies Allergy/AdvReac Type Severity Reaction Status Date / Time No Known Allergies Allergy Verified 08/05/21 13:58 [No Known Allergies*] Review of Systems Review of Systems Constitutional : No Weight loss, No Fever, No Chills ENT/Mouth : No sore throat, No Rhinorrhea Eyes: No Swelling, No Redness Cardiovascular : No Chest Pain, No SOB, NoEdema Respiratory : No Cough, No Sputum, No Wheezing Gastrointestinal : Positive Nausea, no Vomiting, no Diarrhea, positive abdominal Pain, No Hematochezia, No Melena Genitourinary : No Dysuria, No Urinary Frequency, No Hematuria, No Urgency , pos vaginal bleeding - scant Musculoskeletal : No joint pain, No Myalgias, No Joint Swelling Skin : No Skin Lesions, No rash Neuro : No Weakness, No Numbness, No Dizziness, No Headache Psych : No Anxiety/Panic, No Depression Heme/Lymph: No Bruising, No Lymphadenopathy Endocrine : No Polyuria, No Polydipsia All other systems reviewed and are negative. Physical Exam Vital Signs: Vital Signs: Last Vital Signs Temp 98.0 F 08/15/21 08:18 Pulse 72 08/15/21 09:51 Resp 15 08/15/21 09:51 BP 108/74 08/15/21 09:51 Pulse Ox 100 08/15/21 09:51 Body Mass Index 21.9 Appearance: Alert. Oriented X3. Anxious in pain mild acute distress. Walking in hunched over. Eyes: Pupils equal, round and reactive to light. ENT: Pharynx normal. Neck: Normal inspection. Neck supple. CVS: Normal heart rate and rhythm. Pulses normal. Respiratory: No respiratory distress. Breath sounds normal. Abdomen: Soft and moderate ttp in lower abdomen no guarding or rebound at this time Skin: Skin warm and dry. pale skin color. Normal skin turgor. Extremities: No lower extremity edema. No calf ttp Neuro: Oriented X 3. No motor deficit. No sensory deficit. Procedures FAST Exam FAST Exam 1: Fluid in Morison's pouch: No Fluid in Splenorenal Junction: No Fluid around bladder, Transverse view: No Fluid around bladder, Sagittal view: Yes Fluid in Pericardial Sac: No Gross Wall Motion Abnormality: No Study normal for this patient: No Images saved for further review: No Additional Comments: some pelvic free fluid Course Course Course Narrative: 833 Dr. Howadr notified of patient's arrival wants patient to have US US notified of urgency of ectopic concerns prelim read sent to Dr. Howard pending final radiology report at 940am radiology call 957am complex mass L adnexa larger 4.4cm (2.5cm) vascularity - new free fluid in region ruptured ectopic cannot exclude - large amount notified Dr. Howard of final read 959am 10am anesthesia aware Dr. Howard to come to ED VS stable MDM - Abdominal Pain MDM Narrative Medical decision making narrative: 25 yo female dx with likely ectopic on 08/09 in L ovary given methotrexate - comes in today with c/o cramping and bleeding since the medication that was improving until the middle of the night today when she developed severe pain in her abdomen - instructed to come to ED for ruptured ectopic. IVF, type and screen labs, COVID, STAT call to OB for reccomendations, bedside FAST exam, IV fentanyl for pain Lab Data Result diagrams: 08/15/21 08:38 08/15/21 08:38 Labs: Lab Results 08/15/21 08/15/21 08/15/21 Range/Units 08:38 08:38 08:38 WBC 9.5 (4.8-10.8) X10*3/uL RBC 3.95 L (4.20-5.50) X10*6/uL Hgb 11.3 L (12.0-16.0) g/dl Hct 33.5 L (37-47) % MCV 84.8 (80-98) fL MCH 28.6 (27.0-33.0) pg MCHC 33.7 (31.0-35.0) g/dl RDW 11.9 (11.0-16.0) % Plt Count 225 (160-400) X10*3/uL MPV 10.5 (9.4-12.3) fL Immature Gran % (Auto) 0.4 (0.0-0.4) % Neut % (Auto) 67.6 (45-73) % Lymph % (Auto) 25.0 (20-40) % [place] % (Auto) 5.1 (2-11) % Eos % (Auto) 1.5 (0-4) % Baso % (Auto) 0.4 (0-2) % Lymph # (Auto) 2.4 (1.2-4.9) X10*3/uL [place] # (Auto) 0.5 (0.1-1.2) X10*3/uL Eos # (Auto) 0.1 (0.0-0.4) X10*3/uL Baso # (Auto) 0.0 (0.0-0.2) X10*3/uL Abs Immat Gran (auto) 0.04 H (0.00-0.03) X10*3/uL Absolute Neuts (auto) 6.4 (2.0-8.3) X10*3/uL Absolute Nucleated RBC 0.000 (0.0-0.012) X10*3/uL Nucleated RBC % (auto) 0.0 (0.0-0.2) /100WBC PT 12.6 (9.9-13.0) SEC INR 1.1 (0.9-1.1) APTT 24.2 (24.1-38.0) SEC Sodium 139 (135-145) mmol/L Potassium 3.7 (3.3-5.1) mmol/L Chloride 104 (96-108) mmol/L Carbon Dioxide 27 (22-29) mmol/L Anion Gap 12 (12-20) BUN 8 L (9-16) mg/dL Creatinine 0.73 (0.5-1.4) mg/dL Estim Creat Clear Calc 104.1 Estimated GFR > 60 Random Glucose 99 (60-115) mg/dL Lactic Acid (0.5-2.0) mmol/L Calcium 9.6 (8.4-10.2) mg/dL Magnesium 1.9 (1.6-2.6) mg/dL Total Bilirubin 0.8 (0.0-1.0) mg/dL Direct Bilirubin 0.2 (0.0-0.5) mg/dL AST 13 (5-31) U/L ALT 9 (0-31) U/L Alkaline Phosphatase 68 (39-117) U/L Total Protein 7.6 (6.5-8.0) g/dL Albumin 4.7 (3.5-5.0) g/dL Lipase 21 (8-78) U/L Beta HCG, Quant 4514 mIU/mL COVID-19 ([facility]) (Negative) COVID-19 Clin Com Blood Type Antibody Screen 08/15/21 08/15/21 08/15/21 Range/Units 08:38 08:38 08:38 WBC (4.8-10.8) X10*3/uL RBC (4.20-5.50) X10*6/uL Hgb (12.0-16.0) g/dl Hct (37-47) % MCV (80-98) fL MCH (27.0-33.0) pg MCHC (31.0-35.0) g/dl RDW (11.0-16.0) % Plt Count (160-400) X10*3/uL MPV (9.4-12.3) fL Immature Gran % (Auto) (0.0-0.4) % Neut % (Auto) (45-73) % Lymph % (Auto) (20-40) % [place] % (Auto) (2-11) % Eos % (Auto) (0-4) % Baso % (Auto) (0-2) % Lymph # (Auto) (1.2-4.9) X10*3/uL [place] # (Auto) (0.1-1.2) X10*3/uL Eos # (Auto) (0.0-0.4) X10*3/uL Baso # (Auto) (0.0-0.2) X10*3/uL Abs Immat Gran (auto) (0.00-0.03) X10*3/uL Absolute Neuts (auto) (2.0-8.3) X10*3/uL Absolute Nucleated RBC (0.0-0.012) X10*3/uL Nucleated RBC % (auto) (0.0-0.2) /100WBC PT (9.9-13.0) SEC INR (0.9-1.1) APTT (24.1-38.0) SEC Sodium (135-145) mmol/L Potassium (3.3-5.1) mmol/L Chloride (96-108) mmol/L Carbon Dioxide (22-29) mmol/L Anion Gap (12-20) BUN (9-16) mg/dL Creatinine (0.5-1.4) mg/dL Estim Creat Clear Calc Estimated GFR Random Glucose (60-115) mg/dL Lactic Acid 1.1 (0.5-2.0) mmol/L Calcium (8.4-10.2) mg/dL Magnesium (1.6-2.6) mg/dL Total Bilirubin (0.0-1.0) mg/dL Direct Bilirubin (0.0-0.5) mg/dL AST (5-31) U/L ALT (0-31) U/L Alkaline Phosphatase (39-117) U/L Total Protein (6.5-8.0) g/dL Albumin (3.5-5.0) g/dL Lipase (8-78) U/L Beta HCG, Quant mIU/mL COVID-19 ([facility]) Negative (Negative) COVID-19 Clin Com See Note Blood Type A Positive Antibody Screen NEGATIVE Critical Care Time Critical Care Time Critical Care Time: Yes Total Critical Care Time: 45 Attestation: stat labs, bedside FAST, medical consult, plan for admission, pain control, review of records I attest to this time spent taking care of the patient Discharge Plan Discharge Clinical Impression: Ruptured ectopic Patient Disposition: Admitted As Inpatient [facility] Past Medical History Attestation statement: The following information was validated with the patient. Medical History No known health problems Surgical History Hx of section Family History Family History Maternal Grandmother Breast CA Social History Social History Alcohol intake: never Patient Tobacco Use Status: Never used Tobacco Advance Directives: No Advance Directives Information Provided: No
[2021-08-15] MEDS: ondansetron HCL 4 MG/2 ML VIAL IVPUSH ×2 (08:42→14:30)
[2021-08-15] MEDS: 0.9 % Sodium Chloride 1,000 ML 999 ML IVCONT ×2 (08:42→09:59)
[2021-08-15] MEDS: fentaNYL citrate/PF 100 MCG/2 ML VIAL 50 MCG IVPUSH (08:42)
[2021-08-15 08:45] LABS: MANUAL DIFF FLAG NO
[2021-08-15 08:50] LABS: Basophils Percent Auto 0.4 % (0-2); Eosinophils Absolute Auto 0.1 X10*3/uL (0.0-0.4); Eosinophils Percent Auto 1.5 % (0-4); Hematocrit 33.5 % (37-47); Hemoglobin 11.3 g/dl (12.0-16.0); Imm Gran Abs Auto 0.04 X10*3/uL (0.00-0.03); Imm Gran Pct Auto 0.4 % (0.0-0.4); Lymphocytes Absolute Auto 2.4 X10*3/uL (1.2-4.9); Mean Corpuscular HGB Conc 33.7 g/dl (31.0-35.0); Mean Corpuscular Hemoglobin 28.6 pg (27.0-33.0); Mean Corpuscular Volume 84.8 fL (80-98); Mean Platelet Volume 10.5 fL (9.4-12.3); Monocytes Absolute Auto 0.5 X10*3/uL (0.1-1.2); Monocytes Percent Auto 5.1 % (2-11); Neutrophils Absolute Auto 6.4 X10*3/uL (2.0-8.3); Neutrophils Percent Auto 67.6 % (45-73); Platelet Count 225 X10*3/uL (160-400); Red Blood Count 3.95 X10*6/uL (4.20-5.50); Red Cell Distribution Width 11.9 % (11.0-16.0); White Blood Count 9.5 X10*3/uL (4.8-10.8)
[2021-08-15 08:53] LABS: INTERNATIONAL NORM RATIO 1.1 (0.9-1.1); Prothrombin Time 12.6 SEC (9.9-13.0)
[2021-08-15 08:56] LABS: Partial Thromboplastin Time 24.2 SEC (24.1-38.0)
[2021-08-15 09:03] LABS: Lactic Acid 1.1 mmol/L (0.5-2.0)
--- NOTE | 2021-08-15 09:03 | PC.NURSE ---
US is at the bedside. Pt states the pain has improved, but appears shaky at this time.
[2021-08-15 09:05] LABS: COVID-19 Test Negative (Negative); IDNOW Serial# 9DD0AD1C
[2021-08-15 09:09] LABS: Alanine Aminotransferase 9 U/L (0-31); Albumin Level 4.7 g/dL (3.5-5.0); Alkaline Phosphatase 68 U/L (39-117); Anion Gap 12 (12-20); Aspartate Amino Transferase 13 U/L (5-31); Bilirubin Direct 0.2 mg/dL (0.0-0.5); Bilirubin Total 0.8 mg/dL (0.0-1.0); Blood Urea Nitrogen 8 mg/dL (9-16); Calcium 9.6 mg/dL (8.4-10.2); Carbon Dioxide 27 mmol/L (22-29); Chloride 104 mmol/L (96-108); Creatinine Clr Calc Pharmacy 104.1; Estimated Glomerular Filt Rate > 60; Glucose Random 99 mg/dL (60-115); Lipase 21 U/L (8-78); Magnesium 1.9 mg/dL (1.6-2.6); Potassium 3.7 mmol/L (3.3-5.1); Sodium 139 mmol/L (135-145); Total Protein 7.6 g/dL (6.5-8.0)
[2021-08-15 09:16] LABS: HCG Quantitative 4514 mIU/mL
--- NOTE | 2021-08-15 10:19 | PM.GYNCN ---
[employer] - CN: HPI Data of Consult Consult date: 08/15/21 Primary Care Provider: Tanya Guo, SARTHAK Consult Narrative Narrative: I was consulted Weston Quiroga whois a 25 year old female who presented the emergency room with sharp abdominal pain that started around 130 in the morning. The patient was diagnosed with left ectopic status post methotrexate 7 days ago, day 4 hCG level was 4873, today's hCG dropped to 4514 (less than 15%). The following workup was done emergency: H&H 11.3/33.5, down from 11.6 /34 on 08/09. Ultrasound done showed the followin.? No intrauterine gestation identified. 2.? Redemonstration of a complex left adnexal masslike structure medial to the left ovary measuring up to 4.4 cm, previously measuring up to 2.5 cm with vascular flow. Interval development of free fluid in the pelvis. Given the lack of intrauterine gestational sac identified as well as increasing beta hCG as well as increasing size of left adnexal mass, findings are concerning for a ectopic . Free fluid in the pelvis may be physiologic though given interval increase since prior imaging may also represent ruptured ectopic. cc:: CC: [employer] - Review of Systems Review of Systems ROS Unobtainable: All systems reviewed & are unremarkable except as noted in HPI and below Cardiovascular: Denies Palpatations, Loss of consciousness or Chest pain Respiratory: Denies Cough, Wheezing or Shortness of breath Musculoskeletal: Denies Low back pain Gastrointestinal: Denies Heartburn, Constipation, Diarrhea, Nausea or Vomiting Genitourinary: Denies Pain with urination, Burning with urination or Urinary frequency Neurological: Denies Migranes Psychological: Denies Depression OB PMFSH Past Medical History Medical History (Updated 08/15/21 @ 10:23 by Davie Howard MD) No known health problems Family History Family History Maternal Grandmother Breast CA Surgical History Surgical History (Updated 08/15/21 @ 11:05 by Elizabeth Jensen MD) H/O tooth extraction Hx of section Social History Social History Alcohol intake: never Patient Tobacco Use Status: Never used Tobacco Second Hand Smoke Exposure: No Use of substances other than those prescribed or required for medical reasons: No Are you DNR?: No Advance Directives: No Advance Directives Information Provided: No Advance Directives on File: No Meds Allergies Allergy/AdvReac Type Severity Reaction Status Date / Time No Known Allergies Allergy Verified 08/05/21 13:58 [No Known Allergies*] Active Medications: Current Medications Sodium Chloride (Ns) 1,000 mls @ 999 mls/hr IVCONT .Q1H1M STEFANO Stop: 08/15/21 10:30 Last Admin: 08/15/21 09:59 Dose: 999 mls/hr Documented by: Home Medications Medication Instructions Recorded Confirmed Last Taken Type acetaminophen 325 mg tablet 325 mg PO QID PRN 08/05/21 Unknown History (Tylenol) [employer] Physical Exam Vitals Vital signs: Temp Pulse Resp BP Pulse Ox 98.0 F 72 15 108/74 100 08/15/21 08:18 08/15/21 09:51 08/15/21 09:51 08/15/21 09:51 08/15/21 09:51 Body Mass Index 21.9 Constitutional General Appearance: Healthy appearing, Well-nourished and Well-developed Psychiatric Mood and Affect: active and alert, normal mood and normal affect Skin Appearance: No rashes and No lesions Lungs Respiratory Effort: No intercostal retractions Auscultation: Clear to auscultation Cardiovascular Auscultation: RRR Abdomen Auscultation/Inspection/Palpation: Normal bowel sounds, Soft, Non-distended and Tenderness (Left lower quadrant tenderness, no guarding or rebound) Female Genitalia (Pelvic) Exam: Deferred [employer] - Results Labs CBC & Chem 7: 08/15/21 08:38 08/15/21 08:38 Labs: Short CBC 08/15/21 Range/Units 08:38 WBC 9.5 (4.8-10.8) X10*3/uL Hgb 11.3 L (12.0-16.0) g/dl Hct 33.5 L (37-47) % Plt Count 225 (160-400) X10*3/uL BMP 08/15/21 08:38 Sodium 139 Potassium 3.7 Chloride 104 Carbon Dioxide 27 BUN 8 L Creatinine 0.73 Calcium 9.6 Liver Function 08/15/21 Range/Units 08:38 Total Bilirubin 0.8 (0.0-1.0) mg/dL Direct Bilirubin 0.2 (0.0-0.5) mg/dL AST 13 (5-31) U/L ALT 9 (0-31) U/L Alkaline Phosphatase 68 (39-117) U/L Albumin 4.7 (3.5-5.0) g/dL Antibody Screen Antibody Screen NEGATIVE 08/15/21 08:38 Assessment and Plan (1) Ectopic : Status: Acute Discussed with the patient her clinical scenario, left ectopic that has increased in size with possible rupture, status post methotrexate with no decrease of at least 15%, that she is not a candidate for medical treatment given the possibility of possible rupture. Recommended laparoscopic salpingostomy possible partial salpingectomy, possible laparotomy. All the pros and cons were discussed with the patient including the risks including but not limited to: Risk of bleeding, infection, possible injury to bladder, bowel, ureter, bladder, possible injury to vessels and need for blood transfusion with all its risks including HIV, hepatitis-B and C and other blood borne pathogens, possible negative impact on future fertility, possible laparotomy All questions answered, the patient verbalized understanding agreed with the plan and signed the consent. Type and screen sent.
--- NOTE | 2021-08-15 10:37 | P.CONAN_ITS ---
HPI - Anesthesia Eval Consult details Narrative: 25yo female patient with left ectopic s/p methotrexate 08/09/21. For left salpingostomy possible left salpingectomy possible laparotomy PMFSH Active Problems Active Problems: All Active Problems (Updated 08/15/21 @ 10:23 by Davie Howard MD) Ectopic (Acute). Stable. Minimal vaginal bleeding. Decreased since onset of symptoms about 2 weeks ago Ruptured ectopic (Acute) Early stage of (Acute) Past Medical History Medical History (Updated 08/15/21 @ 10:23 by Davie Howard MD) No known health problems Family History Family History Maternal Grandmother Breast CA Family history of problems with anesthesia: No Surgical History Surgical History (Updated 08/15/21 @ 11:05 by Elizabeth Jensen MD) H/O tooth extraction Hx of section History of Problems with Anesthesia: No Social History Social History Alcohol intake: never Patient Tobacco Use Status: Never used Tobacco Second Hand Smoke Exposure: No Use of substances other than those prescribed or required for medical reasons: No Are you DNR?: No Advance Directives: No Advance Directives Information Provided: No Advance Directives on File: No Meds Allergies Allergy/AdvReac Type Severity Reaction Status Date / Time No Known Allergies Allergy Verified 08/05/21 13:58 [No Known Allergies*] Active Medications: Current Medications Lactated Ringer's (Lr) 1,000 mls @ 100 mls/hr IVCONT .Q10H [facility] Home Medications Medication Instructions Recorded Confirmed Last Taken Type acetaminophen 325 mg tablet 325 mg PO QID PRN 08/05/21 Unknown History (Tylenol) Exam Exam Date and Time: August 15, 2021 1037 Height,Weight and Vital Signs: Height 5 ft 5 in Weight 59.874 kg Last Vital Signs Temp 98.0 F 08/15/21 08:18 Pulse 72 08/15/21 09:51 Resp 15 08/15/21 09:51 BP 108/74 08/15/21 09:51 Pulse Ox 100 08/15/21 09:51 Pertinent Lab Results Pertinent Lab Results: Laboratory Tests 09/17/21 09/17/21 09/17/21 08:38 08:38 08:38 WBC 9.5 RBC 3.95 L Hgb 11.3 L Hct 33.5 L MCV 84.8 MCH 28.6 MCHC 33.7 RDW 11.9 Plt Count 225 MPV 10.5 Immature Gran % (Auto) 0.4 Neut % (Auto) 67.6 Lymph % (Auto) 25.0 [place] % (Auto) 5.1 Eos % (Auto) 1.5 Baso % (Auto) 0.4 Lymph # (Auto) 2.4 [place] # (Auto) 0.5 Eos # (Auto) 0.1 Baso # (Auto) 0.0 Abs Immat Gran (auto) 0.04 H Absolute Neuts (auto) 6.4 Absolute Nucleated RBC 0.000 Nucleated RBC % (auto) 0.0 PT 12.6 INR 1.1 APTT 24.2 Sodium 139 Potassium 3.7 Chloride 104 Carbon Dioxide 27 Anion Gap 12 BUN 8 L Creatinine 0.73 Estim Creat Clear Calc 104.1 Estimated GFR > 60 Random Glucose 99 Lactic Acid Calcium 9.6 Magnesium 1.9 Total Bilirubin 0.8 Direct Bilirubin 0.2 AST 13 ALT 9 Alkaline Phosphatase 68 Total Protein 7.6 Albumin 4.7 Lipase 21 Beta HCG, Quant 4514 COVID-19 ([facility]) COVID-19 [employer] Com Blood Type Antibody Screen 08/15/21 08/15/21 08/15/21 08:38 08:38 08:38 WBC RBC Hgb Hct MCV MCH MCHC RDW Plt Count MPV Immature Gran % (Auto) Neut % (Auto) Lymph % (Auto) [place] % (Auto) Eos % (Auto) Baso % (Auto) Lymph # (Auto) [place] # (Auto) Eos # (Auto) Baso # (Auto) Abs Immat Gran (auto) Absolute Neuts (auto) Absolute Nucleated RBC Nucleated RBC % (auto) PT INR APTT Sodium Potassium Chloride Carbon Dioxide Anion Gap BUN Creatinine Estim Creat Clear Calc Estimated GFR Random Glucose Lactic Acid 1.1 Calcium Magnesium Total Bilirubin Direct Bilirubin AST ALT Alkaline Phosphatase Total Protein Albumin Lipase Beta HCG, Quant COVID-19 ([facility]) Negative COVID-19 Clin Com See Note Blood Type A Positive Antibody Screen NEGATIVE Airway Mallampati Class: II TM Dist: >3cm Neck ROM: Full Loose/Missing/Broken Teeth: No Heart: RRR Lungs: CTAB Assessment and Plan Assessment Anesthesia Assessment: Anesthesia Plan Discussed and Chart Reviewed Final Anesthetic Review Family History of Problems with Anesthesia: No History of Problems with Anesthesia: No NPO: Yes ASA Class: II and Emergency Final Preanesthetic Review: No Changes in Pt Med Stat, Meds/Allgs Chart Reviewed, Consent Obtained/Reviewed and Anes Risks/Benef Reviewed Patient Risk: Intermediate Procedure Risk: Intermediate Assessment/Block/Sedation in SS: Assess/Block/Sedation-SS Anesthetic Plan Anesthetic Plan: GA (RSI with cricoid pressure) Disposition: Standard PACU
--- NOTE | 2021-08-15 10:48 | PC.NURSE ---
pt unsure concerning tissue disposal director aware will call wednesday when made decision
--- NOTE | 2021-08-15 12:41 | P.BOP_ITS ---
Brief Operative Note Date of Service: 08/15/21 Pre-op diagnosis: Left ectopic possible rupture Post-op diagnosis: other (Left ectopic filling up most of the left tube with 100 cc of hemoperitoneum) Procedure: Laparoscopic left partial salpingectomy Surgeon: Davie Howard MD Anesthesia: GETA Was an Dis[employer] Merchandise used for this Procedure?: No Estimated blood loss (mL): 0 Pathology: other (left ectopic with partial left tube) Condition: stable Disposition: PACU
--- NOTE | 2021-08-15 12:41 | MHC.SHP ---
Pre-Procedural Eval Section A Date of Service: 08/15/21 The patient is an INPATIENT: No Changes since office visit: No Cold of Flu in the past 2 weeks, No New Medical Problems, No Changes in Medication and No Patient answered all questions The History & Physical has been completed within 30 days and I have reviewed it.: Yes Section B Chief Complaint: abd pain Allergies: Allergies Allergy/AdvReac Type Severity Reaction Status Date / Time No Known Allergies Allergy Verified 08/05/21 13:58 [No Known Allergies*] Plan Diagnosis/Plan: Unchanged I have reviewed the history and physical and performed a pertinent physical examination on my patient. No changes have occurred unless specified.
--- NOTE | 2021-08-15 12:42 | P.OP_ITS ---
Operative Note Operative Note Date of Service: 08/15/21 Narrative: PREOPERATIVE DIAGNOSIS:? Left ectopic was possible rupture POSTOPERATIVE DIAGNOSIS:? Left ectopic filling up the whole left tube was 100 cc of hemoperitoneum, omental adhesions to the periumbilical abdominal wall and lower uterine segment adherent to the lower abdominal wall QBL: Minimal Anesthesia: GETA SURGEON:? Davie Howard MD?? Appeals Specialist: Complications: None Pathology: Left partial tube with ectopic DESCRIPTION OF PROCEDURE:?The patient was taken to the OR where general anesthesia was easily obtained. The patient was then prepped and draped in a sterile fashion and placed in dorsal lithotomy position. A speculum was introduced into the patient?s vagina for cervical visualization. Once the cervix was visualized, a single-toothed tenaculum was applied to the upper lip of the cervix, and a Humi manipulator was introduced into the patient?s cervix. The single tooth tenaculum was then removed and hemostasis was assured?using pressure. a García catheter?was inserted and clear urine started draining. Gloves were changed to clean ones. Attention was then drawn to the abdomen where a 10 mm longitudinal incision was done intra umbilical and carried down all the way to the fascia, which was tented?up using 2 Heron clamps and was nicked in the midline and then extended on both end of the incision?, them using 2 pick?ups the peritoneum?was entered with Metzenbaum scissors and under direct visualization, a 10 mm Mcnamara trocar was introduced into the patient?s abdomen. Once intraperitoneal placement was confirmed with direct visualization, pneumoperitoneum was started & was easily obtained.Then, two fingerbreadths above the pubic symphysis and towards the?left lower quadrant, under direct visualization, a 10 mm trocar was then introduced into the patient?s abdomen. and a 3rd one on the right?lower quadrant, 5 mm was placed?in a similar manner. The patient was placed in Trendelenburg position, Inspection revealed 100 cc of the hemoperitoneum with left tubal filling up the whole left tube, the left tube was bluish looking. There was omental adhesions to the abdominal wall and the lower uterine segment adhesions to the abdominal wall Attention was then drawn to the left fallopian tube. The left fallopian tube with ectopic was then grasped by the fimbria and incised from the mesosalpinx using ligasure device, using cautery for hemostasis and cutting afterwards a bite at a time till 2 cm from the cornual end of the tube. Good hemostasis was noted from the left fallopian tube sites and the operative site. Suction irrigation follow-up and suction of the hemoperitoneum was completed. Specimen was then put in a endobag and then removed from the patient?s abdomen through the left lower 10 mm port. Copious irrigation was done. Once good hemostasis was noted from the patient?s abdomen, pneumoperitoneum was deflated and all trocars were removed. Infraumbilical fascia was closed with 0 Vicryl and interrupted suture. The skin was closed with 4-0 Vicryl. The Right and left?lower quadrant ports were closed with 0 Vicryl. Bupivicaine 0.25 10 cc were injected subcuticularly in the 3 incisions. Then speculum was put back in the vagina inspection revealed?hemostasis at the site of the tenaculum, the?humi manipulator was removed? and García was draining clear urine was taken out too. Sponge, lap and needle counts were correct x2. The patient was taken to the recovery room in stable condition.
[2021-08-15] MEDS: fentaNYL citrate/PF 100 MCG/2 ML VIAL 25 MCG IVPUSH ×8 (13:07→14:32)
[2021-08-15] MEDS: oxyCODONE HCl Immed Release 5 MG TABLET PO ×2 (13:07→18:18)
[2021-08-15] MEDS: Acetaminophen 325 MG TABLET 650 MG PO (13:09)
== END 2021-08-15 13:39 | disposition admitted as inpatient to this hospital (09) ==
LOC: HO.ED 10:15 → HO.SSS 16:38
PROVIDERS: Obstetrics & Gynecology; PCP Family Medicine; Visit Provider Emergency Medicine
PROC: 10T24ZZ Resection of Products of Conception, Ectopic, Percutaneous Endoscopic Approach (ICD-10-PCS; CPT 59150; principal; 2021-08-15 13:10)
DX: O00.102 Left tubal pregnancy without intrauterine pregnancy (principal); O08.1 Delayed or excessive hemorrhage following ectopic and molar pregnancy; O08.89 Other complications following an ectopic and molar pregnancy; K66.0 Peritoneal adhesions (postprocedural) (postinfection); Z20.822 Contact with and (suspected) exposure to COVID-19
CPT/HCPCS: 59151; 36415; 76801; 76817; 80048; 80076; 83605; 83690; 83735; 84702; 85025; 85610; 85730; 86850; 86900; 86901; 87635; 88305; J0330; J1885; J2250; J2405; J3010

== ENCOUNTER 2021-08-26 14:21 | Outpatient (REF) | payer MEDICAID, SELFPAY ==
[2021-08-26 16:39] LABS: HCG Quantitative 72 mIU/mL
== END 2021-08-26 14:22 | disposition home or self-care (01) ==
LOC: HO.LAB 14:21
PROVIDERS: Visit Provider Obstetrics & Gynecology
DX: O00.90 Unspecified ectopic pregnancy without intrauterine pregnancy (principal); Z98.890 Other specified postprocedural states
CPT/HCPCS: 36415; 84702; 99212

== ENCOUNTER 2021-09-11 07:33 | Outpatient (REF) | payer MEDICAID, SELFPAY ==
[2021-09-11 09:35] LABS: HCG Quantitative 3 mIU/mL
== END 2021-09-11 07:34 | disposition home or self-care (01) ==
LOC: HO.LAB 07:33
PROVIDERS: PCP Family Medicine; Visit Provider Obstetrics & Gynecology
DX: O00.90 Unspecified ectopic pregnancy without intrauterine pregnancy (principal)
CPT/HCPCS: 36415; 84702

== ENCOUNTER 2021-09-24 07:07 | Outpatient (REF) | payer MEDICAID, SELFPAY ==
[2021-09-24 08:24] LABS: HCG Quantitative < 2 mIU/mL
== END 2021-09-24 07:08 | disposition home or self-care (01) ==
LOC: HO.LAB 07:07
PROVIDERS: PCP Family Medicine; Visit Provider Obstetrics & Gynecology
DX: O00.90 Unspecified ectopic pregnancy without intrauterine pregnancy (principal)
CPT/HCPCS: 36415; 84702

== ENCOUNTER 2022-03-09 10:16 | Outpatient (REF) | payer MEDICAID, SELFPAY ==
[2022-03-09 11:38] LABS: HCG Quantitative 124 mIU/mL
== END 2022-03-09 10:17 | disposition home or self-care (01) ==
LOC: HO.LAB 10:16
PROVIDERS: PCP Family Medicine; Visit Provider Obstetrics & Gynecology
DX: Z34.90 Encounter for supervision of normal pregnancy, unspecified, unspecified trimester (principal)
CPT/HCPCS: 36415; 84702

== ENCOUNTER 2022-03-11 08:11 | Outpatient (REF) | payer MEDICAID, SELFPAY ==
[2022-03-11 09:17] LABS: HCG Quantitative 404 mIU/mL
== END 2022-03-11 08:12 | disposition home or self-care (01) ==
LOC: HO.LAB 08:11
PROVIDERS: PCP Family Medicine; Visit Provider Obstetrics & Gynecology
DX: Z34.90 Encounter for supervision of normal pregnancy, unspecified, unspecified trimester (principal)
CPT/HCPCS: 36415; 84702

== ENCOUNTER 2022-03-13 06:30 | Outpatient (REF) | payer MEDICAID, SELFPAY ==
[2022-03-13 07:51] LABS: HCG Quantitative 933 mIU/mL
== END 2022-03-13 06:31 | disposition home or self-care (01) ==
LOC: HO.LAB 06:30
PROVIDERS: PCP Family Medicine; Visit Provider Obstetrics & Gynecology
DX: Z34.90 Encounter for supervision of normal pregnancy, unspecified, unspecified trimester (principal)
CPT/HCPCS: 36415; 84702

== ENCOUNTER 2022-03-15 04:29 | Emergency (ER) | payer MEDICAID, SELFPAY ==
[2022-03-15 04:34] VITALS: BP 139/84; PULSE 83; RESP 16; TEMP 36.6; O2SAT 99; BMI 21.1
[2022-03-15 04:47] LABS: Basophils Percent Auto 0.3 % (0-2); Eosinophils Absolute Auto 0.1 X10*3/uL (0.0-0.4); Eosinophils Percent Auto 1.3 % (0-4); Hematocrit 31.9 % (37.0-47.0); Hemoglobin 10.8 g/dl (12.0-16.0); Lymphocytes Absolute Auto 3.3 X10*3/uL (1.2-4.9); Lymphocytes Percent Auto 54.5 % (20-40); MANUAL DIFF FLAG NO; Mean Corpuscular HGB Conc 33.9 g/dl (31.0-35.0); Mean Corpuscular Hemoglobin 28.4 pg (27.0-33.0); Mean Corpuscular Volume 83.9 fL (80.0-98.0); Mean Platelet Volume 10.8 fL (9.4-12.3); Monocytes Absolute Auto 0.5 X10*3/uL (0.1-1.2); Monocytes Percent Auto 7.6 % (2-11); Neutrophils Absolute Auto 2.2 x10*3/uL (2.0-8.3); Neutrophils Percent Auto 36.3 % (45-73); Platelet Count 190 X10*3/uL (160-400); Red Cell Distribution Width 12.6 % (11.0-16.0); White Blood Count 6.1 X10*3/uL (4.8-10.8)
[2022-03-15 05:04] LABS: Alanine Aminotransferase 11 U/L (0-31); Albumin Level 4.3 g/dL (3.5-5.0); Alkaline Phosphatase 47 U/L (39-117); Anion Gap 13 (12-20); Aspartate Amino Transferase 14 U/L (5-31); Bilirubin Total 0.5 mg/dL (0.0-1.0); Blood Urea Nitrogen 10 mg/dL (9-16); Calcium 9.4 mg/dL (8.4-10.2); Carbon Dioxide 22 mmol/L (22-29); Chloride 105 mmol/L (96-108); Creatinine Clr Calc Pharmacy 110.8; Estimated Glomerular Filt Rate > 60; Glucose Random 92 mg/dL (60-115); Sodium 136 mmol/L (135-145)
[2022-03-15 05:09] LABS: HCG Quantitative 1911 mIU/mL
[2022-03-15 06:09] VITALS: BP 131/84; PULSE 80; RESP 14; O2SAT 100
--- NOTE | 2022-03-15 07:09 | ED_ITS ---
HPI - Abdominal Pain General Chief Complaint: Abdominal Pain Stated Complaint: Abd pain Time Seen by Provider: 03/15/22 06:59 Source: patient Mode of arrival: ambulatory Limitations: no limitations History of Present Illness HPI narrative: 26 years old female came in for evaluation of a concern of ectopic . found 5 weeks by date LMP 02/11. History of ectopic with left salpingectomy, was seen and evaluated by Dr. Howard for early , but because he was concern of recurrent him ectopic he sent the patient for serial HCG and pelvic ultrasound to the emergency department. Patient has no complain now but been getting a minor pains to the left pelvic area and sometimes moved to the right pelvic area but declined any vaginal discharge or bleed. Patient also declined nausea and vomiting. No fever, no chills. Ectopic was thought to be secondary to pelvic adhesion after complicated with perforated left ureter. Related Data Home Medications Medication Instructions Recorded Confirmed acetaminophen 325 mg tablet 325 mg PO QID PRN 08/05/21 (Tylenol) Previous Rx's Medication Instructions Recorded oxycodone 5 mg capsule 5 mg PO Q4H PRN #30 cap 08/15/21 Allergies Allergy/AdvReac Type Severity Reaction Status Date / Time No Known Allergies Allergy Verified 08/05/21 13:58 [No Known Allergies*] Review of Systems Review of Systems All other systems are reviewed and are negative Constitutional: Reports as per HPI and Reports no additional constitutional complaints Eyes: Reports as per HPI and Reports no additional eye complaints Reports system reviewed and no additional complaints, except as documented Cardiovascular: Reports as per HPI and Reports no additional cardiovascular complaints Respiratory: Reports as per HPI and Reports no additional respiratory complaints Gastrointestinal: Reports as per HPI and Reports no additional gastrointestinal complaints Genitourinary: Reports no additional female genitourinary complaints Musculoskeletal: Reports no additional musculoskeletal complaints Skin/Breast: Reports system reviewed and no additional complaints, except as docu Psychiatric: Reports no additional psychiatric complaints Endocrine: Reports no additional endocrine complaints Hematologic/Lymphatic: Reports no additional hematologic/lymphatic complaints Allergic/Immunologic: Reports no additional allergic/immunologic complaints Reports system reviewed and no additional complaints, except as documented and Reports Abnormal speech present PMFSH Past Medical History Medical History Ectopic No known health problems Surgical History H/O tooth extraction Hx of section Family History Family History Maternal Grandmother Breast CA Social History Social History Alcohol intake: never Patient Tobacco Use Status: Never used Tobacco Second Hand Smoke Exposure: No Use of substances other than those prescribed or required for medical reasons: No Advance Directives: No Physical Exam ED Vital Signs: Vital Signs - 24 hr 03/15/22 04:34 03/15/22 06:09 Temperature 97.9 F Pulse Rate 83 80 Respiratory Rate 16 14 Blood Pressure 139/84 131/84 Pulse Oximetry 99 100 BMI result Body Mass Index 21.1 Vital signs have been reviewed as appeared to be correct. Blood pressure normal. Heart rate normal. Respiration rate normal. Temperature normal. Oxygen saturation normal. Appearance: Alert. Oriented X3. No acute distress. Head: Normal external exam. Normocephalic. Atraumatic. No [place] signs noted. No raccoon eyes noted Eyes: PERRLA. EOMI. Conjunctiva and sclera normal. Eyelids normal. ENT: TM's Normal. Pharynx normal. Uvula midline. Moist mucous membranes. No trismus noted. No drooling noted. No muffled voice noted. Neck: Normal inspection. Neck supple. FROM. No adenopathy. Thyroid Normal. No meningeal signs. No neck mass noted. CVS: Normal heart rate and rhythm. Heart sound normal. No murmurs noted. Pulses normal throughout. Respiratory: No respiratory distress. Painless inspiration. Breath sounds normal. No wheezes/rales/rhonchi noted. Chest nontender. No accessory muscle usage noted or decreased air movement noted. Abdomen: Soft and nontender. Bowel sounds normal in all 4 quadrants. No distention noted. No organomegaly noted. No visible injury noted. Pelvis: Deferred for the ultrasound. Back: No CVA tenderness. Full range of motion noted. Skin: Skin warm and dry. Normal skin color. Normal skin turgor. No rashes/lesions/lacerations noted. Extremities: No lower extremity edema. Extremities exhibit normal range of motion. Extremities nontender. Neuro: Oriented X 3. Cranial nerve exam: II-XII are grossly intact No motor deficit. No sensory deficit. Reflexes normal. Course Course Course Narrative: Assessment and plan. 26-year-old female 5 weeks , history of ectopic patient is here today for concern of recurrent ectopic , hCG today is 1911 was 933 two days ago, patient is asymptomatic, no pelvic pain or vaginal bleeding, pelvic ultrasound was ordered (it is Wednesday with ultrasound service only on-call and not in house) patient is aware of that and she cannot wait has a necessary errands that she has to leave for despite me trying to convince her to wait for the social services technician to reform the test, Patient stated that she will return back some other time later today. On discharge patient has no pain or symptoms. MDM - Abdominal Pain Lab Data Attestation: I reviewed the patient's lab results. Result diagrams: 03/15/22 04:45 03/15/22 04:45 Labs: Lab Results 03/15/22 03/15/22 Range/Units 04:45 04:45 WBC 6.1 (4.8-10.8) X10*3/uL RBC 3.80 L (4.20-5.50) X10*6/uL Hgb 10.8 L (12.0-16.0) g/dl Hct 31.9 L (37.0-47.0) % MCV 83.9 (80.0-98.0) fL MCH 28.4 (27.0-33.0) pg MCHC 33.9 (31.0-35.0) g/dl RDW 12.6 (11.0-16.0) % Plt Count 190 (160-400) X10*3/uL MPV 10.8 (9.4-12.3) fL Immature Gran % (Auto) 0.0 (0.0-0.4) % Neut % (Auto) 36.3 L (45-73) % Lymph % (Auto) 54.5 H (20-40) % [place] % (Auto) 7.6 (2-11) % Eos % (Auto) 1.3 (0-4) % Baso % (Auto) 0.3 (0-2) % Lymph # (Auto) 3.3 (1.2-4.9) X10*3/uL [place] # (Auto) 0.5 (0.1-1.2) X10*3/uL Eos # (Auto) 0.1 (0.0-0.4) X10*3/uL Baso # (Auto) 0.0 (0.0-0.2) X10*3/uL Abs Immat Gran (auto) 0.00 (0.00-0.03) X10*3/uL Absolute Neuts (auto) 2.2 (2.0-8.3) x10*3/uL Absolute Nucleated RBC 0.000 (0.0-0.012) X10*3/uL Nucleated RBC % (auto) 0.0 (0.0-0.2) /100WBC Sodium 136 (135-145) mmol/L Potassium 4.0 (3.3-5.1) mmol/L Chloride 105 (96-108) mmol/L Carbon Dioxide 22 (22-29) mmol/L Anion Gap 13 (12-20) BUN 10 (9-16) mg/dL Creatinine 0.68 (0.5-1.4) mg/dL Estim Creat Clear Calc 110.8 Estimated GFR > 60 Random Glucose 92 (60-115) mg/dL Calcium 9.4 (8.4-10.2) mg/dL Total Bilirubin 0.5 (0.0-1.0) mg/dL AST 14 (5-31) U/L ALT 11 (0-31) U/L Alkaline Phosphatase 47 D (39-117) U/L Total Protein 7.0 (6.5-8.0) g/dL Albumin 4.3 (3.5-5.0) g/dL Beta HCG, Quant 1911 mIU/mL Discharge Plan Discharge Clinical Impression: Early stage of Patient Disposition: Home, Self-Care Instructions: (ED) Prescriptions: No Action oxycodone 5 mg capsule 5 mg PO Q4H PRN (Reason: pain) Qty: 30 0RF acetaminophen [Tylenol] 325 mg tablet 325 mg PO QID PRN0RF Referrals: Davie Howard MD [Physician] -
== END 2022-03-15 09:13 | disposition home or self-care (01) ==
PROVIDERS: Emergency Provider Emergency Medicine; PCP Family Medicine
DX: O09.11 Supervision of pregnancy with history of ectopic pregnancy, first trimester (principal); O34.219 Maternal care for unspecified type scar from previous cesarean delivery; Z3A.01 Less than 8 weeks gestation of pregnancy; Z90.79 Acquired absence of other genital organ(s)
CPT/HCPCS: 36415; 80053; 84702; 85025; 99284

== ENCOUNTER 2022-03-15 20:16 | Emergency (ER) | payer MEDICAID, SELFPAY ==
--- NOTE | ~2022-03-15 | US_ITS ---
EXAMINATION: US OBSTETRICAL ULTRASOUND CLINICAL INFORMATION: Pelvic pain. HCG 191. History of ectopic . COMPARISON: 08/15/2021. LMP: 02/11/2022. Gestational age by maternal dates is 4 weeks, 4 days. Estimated date of delivery by maternal dates is 11.18.2022. TECHNIQUE: Transabdominal and transvaginal imaging of the pelvic viscera performed. FINDINGS: Tiny intrauterine fluid collection, which if motor vehicle field representative of a gestational sac has a mean sac diameter of 3.3 mm corresponding to gestational age of 4 weeks, 6 days. No pole or yolk sac is identified. MAI (estimated date of delivery): 11.16.2022 +/- 4 days. MATERNAL ADNEXA: The right maternal ovary measures 4.0 x 2.2 x 1.9 cm. There are multiple follicles within the right ovary, one of which represents a corpus luteum measuring 2.6 cm. The left maternal ovary measures 2.3 x 2.1 x 1.3 cm. There is no significant maternal adnexal mass. No maternal pelvic ascites. US/US OB pelvic and transvaginal IMPRESSION: * Tiny presumed gestational sac within uterus with size corresponding to gestational age of 4 weeks, 6 days. * No perigestational hemorrhage. * Estimated date of delivery is 11.16.2022 +/- 4 days. * No maternal adnexal mass or pelvic ascites.
[2022-03-15 20:34] VITALS: BP 118/72; PULSE 69; RESP 16; TEMP 37.2; O2SAT 100; BMI 21.1
[2022-03-15 21:18] VITALS: BP 123/82; PULSE 71; RESP 16; O2SAT 100
--- NOTE | 2022-03-15 21:30 | ED.PREGNANCY ---
HPI - General Chief complaint: Urogenital-Female Stated complaint: was here this am for ultrasound, but left Time Seen by Provider: 03/15/22 21:09 Source: patient Mode of arrival: ambulatory History of Present Illness HPI Narrative: 26-year-old female who is and has a history of ectopic presents as a referral from Dr. Howard to ensure no evidence of ectopic at the current time. Patient denies any significant pelvic pain, vaginal bleeding, dysuria. Patient was seen here earlier in the morning, however had to leave because she has children at home. Related Data Home Medications Medication Instructions Recorded Confirmed acetaminophen 325 mg tablet 325 mg PO QID PRN 08/05/21 (Tylenol) Previous Rx's Medication Instructions Recorded oxycodone 5 mg capsule 5 mg PO Q4H PRN #30 cap 08/15/21 Allergies Allergy/AdvReac Type Severity Reaction Status Date / Time No Known Allergies Allergy Verified 08/05/21 13:58 [No Known Allergies*] Review of Systems Review of Systems: Pertinent positives and negatives as stated in HPI 10 point review of systems is otherwise negative. PMFSH Past Medical History Source: nursing notes reviewed Medical History Ectopic No known health problems Surgical History H/O tooth extraction Hx of section Family History Family History Maternal Grandmother Breast CA Social History Social History Alcohol intake: never Patient Tobacco Use Status: Never used Tobacco Second Hand Smoke Exposure: No Advance Directives: No Patient : Yes Physical Exam Vital Signs: Vital Signs: Last Vital Signs Temp 99.0 F 03/15/22 20:34 Pulse 71 03/15/22 21:18 Resp 16 03/15/22 21:18 BP 123/82 03/15/22 21:18 Pulse Ox 100 03/15/22 21:18 BMI result Body Mass Index 21.1 VITAL SIGNS: Reviewed. GENERAL: Well developed, well nourished, in no acute distress. HEAD: Normocephalic/atraumatic EYES: PERRLA, EOMI OROPHARYNX: no oral lesions noted, posterior pharynx clear LUNGS: Normal breath sounds. No adventitious sounds or accessory muscle use. SpO2<100> CARDIOVASCULAR: Regular rate and rhythm without noted murmurs ABDOMEN: Soft, non-tender, non-distended with bowel sounds. NEUROLOGIC: Alert and oriented x 4. Course Course Course Narrative: 26-year-old female with otherwise unchanged presentation, all documentation and lab work/workup from this morning reviewed and pelvic ultrasound placed for evaluation of IUP. On review of all investigations patient has IUP. Discharge Plan Discharge Clinical Impression: Early stage of , Intrauterine Patient Disposition: Home, Self-Care Instructions: (ED) Additional Instructions: You have a intra uterine currently. It is very early but estimated to be 4 weeks and 6 days. Prescriptions: No Action oxycodone 5 mg capsule 5 mg PO Q4H PRN (Reason: pain) Qty: 30 0RF acetaminophen [Tylenol] 325 mg tablet 325 mg PO QID PRN0RF Referrals: Tanya Guo CNP [Primary Care Provider] - Davie Howard MD [Physician] -
== END 2022-03-15 23:35 | disposition home or self-care (01) ==
PROVIDERS: Emergency Provider Student in an Organized Health Care Education/Training Program; PCP Family Medicine
DX: O09.11 Supervision of pregnancy with history of ectopic pregnancy, first trimester (principal); O34.219 Maternal care for unspecified type scar from previous cesarean delivery; Z3A.01 Less than 8 weeks gestation of pregnancy
CPT/HCPCS: 76801; 76817; 99283; 99284

== ENCOUNTER 2022-03-17 07:17 | Outpatient (REF) | payer MEDICAID, SELFPAY ==
--- NOTE | ~2022-03-17 | US_ITS ---
EXAMINATION: US OBSTETRICAL ULTRASOUND CLINICAL INFORMATION: Pelvic pain and cramping. History of ectopic . COMPARISON: Previous exam 03/15/2022. LMP: 02/11/2022. Gestational age by maternal dates is 4 weeks 6 days. Estimated date of delivery by maternal dates is 11/18/2022. TECHNIQUE: Transabdominal and transvaginal first trimester OB ultrasound FINDINGS: The uterus is normal in size and shape. There is an intrauterine gestational sac and yolk sac. Mean sac diameter suggests gestational age of 5 weeks 0 days. No pole is seen. This may be due to early gestational age. The right maternal ovary measures 3.2 x 2.1 x 2.3 cm. There is a 2.2 x 1.5 x 1.3 cm cyst in the right ovary. The left ovary is normal-appearing and measures 2.4 x 3 x 1.5 cm. There is no fluid in the pelvis. US/US OB pelvic and transvaginal IMPRESSION: Intrauterine gestational sac and yolk sac. Mean sac diameter suggests gestational age of 5 weeks 0 days. No pole seen. This may be due to early gestational age.
[2022-03-17 08:58] LABS: HCG Quantitative 3720 mIU/mL
== END 2022-03-17 07:18 | disposition home or self-care (01) ==
LOC: HO.US 07:17
PROVIDERS: PCP Family Medicine; Visit Provider Obstetrics & Gynecology
DX: Z34.90 Encounter for supervision of normal pregnancy, unspecified, unspecified trimester (principal)
CPT/HCPCS: 36415; 76801; 76817; 84702; 99212

== ENCOUNTER 2022-04-20 08:51 | Outpatient (REF) | payer MEDICAID, SELFPAY ==
[2022-04-20 16:20] LABS: CT PCR NOT DETECTED (Not Detect.); NG PCR NOT DETECTED (Not Detect.)
== END 2022-04-20 08:52 | disposition home or self-care (01) ==
LOC: HO.LAB 08:51
PROVIDERS: PCP Family Medicine; Visit Provider Obstetrics & Gynecology
DX: Z34.90 Encounter for supervision of normal pregnancy, unspecified, unspecified trimester (principal)
CPT/HCPCS: 87491; 87591; 99212

== ENCOUNTER 2022-04-22 10:13 | Outpatient (REF) | payer MEDICAID, SELFPAY ==
--- NOTE | ~2022-04-22 | US_ITS ---
EXAMINATION: US OBSTETRICAL ULTRASOUND CLINICAL INFORMATION: For size and dates. COMPARISON: None. LMP: 02/11/2022. Gestational age by maternal dates is 10 weeks 0 days. Estimated date of delivery by maternal dates is 11/18/2022. TECHNIQUE: Routine transabdominal imaging of pelvis is performed. FINDINGS: There is a single intrauterine gestational sac with visible yolk sac, embryo/fetus, and cardiac activity. There is no significant subchorionic hemorrhage or hematoma. HR: 165 beats per minute. CRL (crown rump length): 3.2 cm, corresponding to 10 weeks and 1 day. MAI (estimated date of delivery): 11/17/2022 +/- 4 days. MATERNAL ADNEXA: The right maternal ovary measures 3.0 x 2.0 x 2.4 cm. There is an anechoic cyst measuring 1.6 x 1.4 x 1.3 cm, suggestive of small corpus luteal cyst. The left maternal ovary measures 2.3 x 2.0 x 1.0 cm. There is no significant maternal adnexal mass. No maternal pelvic ascites. US/US OB <= 14 weeks fetus IMPRESSION: 1. Single intrauterine gestation with ultrasound gestational age of 10 weeks 1 day +/- 4 days. 2. Estimated date of delivery is 11/17/2022 +/- 4 days. 3. No maternal adnexal mass or pelvic ascites.
== END 2022-04-22 10:14 | disposition home or self-care (01) ==
LOC: HO.US 10:13
PROVIDERS: Visit Provider Obstetrics & Gynecology
DX: Z34.91 Encounter for supervision of normal pregnancy, unspecified, first trimester (principal); Z3A.10 10 weeks gestation of pregnancy
CPT/HCPCS: 76801

== ENCOUNTER 2022-04-30 09:45 | Outpatient (REF) | payer MEDICAID, SELFPAY ==
[2022-04-30 12:57] LABS: Hematocrit 34.5 % (37.0-47.0); Hemoglobin 11.6 g/dl (12.0-16.0); Mean Corpuscular HGB Conc 33.6 g/dl (31.0-35.0); Mean Corpuscular Hemoglobin 28.4 pg (27.0-33.0); Mean Corpuscular Volume 84.6 fL (80.0-98.0); Mean Platelet Volume 11.3 fL (9.4-12.3); Platelet Count 231 X10*3/uL (160-400); Red Blood Count 4.08 X10*6/uL (4.20-5.50); Red Cell Distribution Width 13.1 % (11.0-16.0); White Blood Count 7.8 X10*3/uL (4.8-10.8)
[2022-04-30 13:33] LABS: Amphetamine Screen Urine Not Detected (Not Detect); Barbiturates, Urine Not Detected (Not Detect); Benzodiazepines Screen Urine Not Detected (Not Detect); Cannabinoid Screen Urine Not Detected (Not Detect); Cocaine Screen Urine Not Detected (Not Detect); Fentanyl, urine Not Detected (Not Detect); Opiate Screen Urine Not Detected (Not Detect); Phencyclidine Screen Urine Not Detected (Not Detect)
[2022-05-01 08:04] LABS: HBsAGNum1 0.19 S/CO (0.00-0.99); HIV AB/AG Nonreactive (Nonreactive); HIV Num 1 0.08 S/CO (0.00-0.99); Hepatitis B Surface Antigen Negative (Negative); ~HepC Num1 0.09 S/CO (0.00-0.79); ~Hepatitis C Antibody Nonreactive (Nonreactive)
[2022-05-01 08:24] LABS: Syphilis Screen Nonreactive (Nonreactive)
[2022-05-01 08:48] LABS: BV Int Neg Control Negative (Negative); BV Int Pos Control Positive (Positive)
[2022-05-02 01:11] LABS: Rubella IgG Antibody 1.43 Index
== END 2022-04-30 09:46 | disposition home or self-care (01) ==
LOC: HO.LAB 09:45
PROVIDERS: Advanced Practice Midwife; PCP Family Medicine; Visit Provider Obstetrics & Gynecology
DX: O20.9 Hemorrhage in early pregnancy, unspecified (principal)
CPT/HCPCS: 80307; 85027; 86762; 86780; 86787; 86803; 86850; 86900; 86901; 87086; 87340; 87389; 87480; 87510; 87660; 99212

== ENCOUNTER → 2022-05-14 10:48 | Outpatient (BNVA) | payer MEDICAID, SELFPAY | PROVIDERS: PCP Family Medicine; Visit Provider Advanced Practice Midwife | DX: O34.211 Maternal care for low transverse scar from previous cesarean delivery (principal); O09.11 Supervision of pregnancy with history of ectopic pregnancy, first trimester; Z3A.13 13 weeks gestation of pregnancy | CPT/HCPCS: 81003; 99212 ==

== ENCOUNTER 2022-05-15 09:15 | Outpatient (REF) | payer MEDICAID, SELFPAY ==
--- NOTE | ~2022-05-15 | US_ITS ---
EXAMINATION: OBSTETRICAL ULTRASOUND, FIRST TRIMESTER HISTORY: 26-year-old at the 13.2 weeks of gestation NT screening COMPARISON: 04/22/2022 TECHNIQUE: Real time transabdominal imaging with color and M-mode Doppler. FINDINGS: A single, live IUP CRL of 74.1 mm c/w 13.4wks is noted. Heart Rate: 152 beats per minute. Normal yolk sac seen. NT was 1.1.mm. NB Present The embryo appears sonographically wnl for this GA. Both maternal ovaries are seen and appear normal. GESTATIONAL AGE: 1. Established GA: 13.2 wks 2. GA from AUA: 13.4 wks ESTIMATED DATE OF DELIVERY: 1. Established MAI: 11/18/2022 2. MAI from AUA: 11/16/2022 US/US OB 1T nuc measure IMPRESSION: 1. A single live IUP 2. Size equals dates 3. NT of 1.1 mm MFM Consultation: I reviewed the ultrasound findings along with significance of NT measurement. The NT of less than 3mm is generally reassuring. However, the sensitivity for T21 detection is only 60%. I reviewed the availability of serum aneuploidy screening which includes cell-free DNA and placental protein based tests. I discussed the sensitivity, false-positive rate, and other limitations associated with each test. I also reviewed the availability of invasive diagnostic tests that are associated small but definite risk of miscarriage. We also reviewed the differences between screening tests and diagnostic tests. After our discussion, she declined the first trimester serum screening for aneuploidy. A follow up at 18 weeks for survey has been scheduled. Thank you very much for this referral. Total time 20 minutes. The time spent was devoted to counseling the patient about the disease and diagnosis, coordinating care including reviewing her records, pertinent lab data and studies, as well as discussing diagnostic evaluation and workup, plan therapeutic interventions and future disposition of care. This includes any additional research needed to obtain further information in formulating the plan of care of this patient. This note was generated with a voice recognition program. Please excuse any errors which may have been overlooked during my review of this note. Sometimes these errors may affect the content or meaning of a given sentence.
== END 2022-05-15 09:16 | disposition home or self-care (01) ==
LOC: HO.US 09:15
PROVIDERS: Visit Provider Advanced Practice Midwife
DX: Z36.82 Encounter for antenatal screening for nuchal translucency (principal); Z3A.13 13 weeks gestation of pregnancy
CPT/HCPCS: 76813